=== PATIENT | male | born 1945 | race African-American/Black ===

== ENCOUNTER 2017-02-19 12:49 | Inpatient (IN) | payer OTHER ==
[~2017-02-19] VITALS: Ht 185.4 cm; Wt 77.1 kg
[~2017-02-19 12:49] MED LIST: AMLODIPINE BESY10 MG ORAL; HYDROCHLOROTHIA25 MG ORAL; LOSARTAN POTASS50 MG ORAL; LOVENOX10 M3 SUBQ; MINOXIDIL2.5 MG PO; WARFARIN SODIU7.5 MG ORAL
[2017-02-19 13:48] LABS: BASOPHILS % (AUTO) 1.2 % (0.0-2.0); EOSINOPHILS % (AUTO) 0.9 % (0.0-3.0); LYMPHOCYTES % (AUTO) 16.2 % (20.0-45.0); MEAN CORPUSCULAR HEMOGLOBIN 35.1 PG (27.0-31.0); MEAN CORPUSCULAR HGB CONC 34.4 G/DL (32.0-36.0); MEAN CORPUSCULAR VOLUME 102 FL (80-99); MEAN PLATELET VOLUME 8.9 FL (6.5-10.1); MONOCYTES % (AUTO) 7.6 % (1.0-10.0); NEUTROPHILS % (AUTO) 74.1 % (45.0-75.0); PLATELET COUNT 188 K/UL (150-450); RED BLOOD COUNT 3.91 M/UL (4.70-6.10); RED CELL DISTRIBUTION WIDTH 11.8 % (11.6-14.8); WHITE BLOOD COUNT 10.8 K/UL (4.8-10.8)
[2017-02-19 14:11] LABS: TROPONIN I < 0.30 ng/mL (<=0.30)
[2017-02-19 14:56] LABS: ALANINE AMINOTRANSFERASE 26 U/L (3-41); ALBUMIN/GLOBULIN RATIO 0.6 (1.0-2.7); ANION GAP 18 (5-15); ASPARTATE AMINO TRANSFERASE 51 U/L (5-40); CALCIUM 10.2 mg/dL (8.6-10.2); CARBON DIOXIDE 20 mEQ/L (20-30); CHLORIDE 97 mEQ/L (98-107); CREATININE 1.8 mg/dL (0.7-1.2); GLOMERULAR FILTRATION RATE 45.6 mL/min (>60); HEMOLYSIS 1; LIPASE 88 U/L (< 60); SODIUM 135 mEQ/L (135-145); TOTAL PROTEIN 7.2 g/dL (6.6-8.7)
[2017-02-19 15:06] LABS: CKMB < 1.5 ng/mL (< 6.7)
[2017-02-19 15:17] LABS: BILIRUBIN,DIRECT 2.6 mg/dL (0.1-0.3)
[2017-02-19 15:34] VITALS: BP 117/55
[2017-02-19] MEDS ORDERED: Nitroglycerin Subl 0.4mg tab (Bottle Of 25) SL PRN (16:00)
[2017-02-19] MEDS ORDERED: Mylanta II UD 30ml ORAL PRN (16:00)
[2017-02-19] MEDS ORDERED: Morphine Sulfate 2mg/ml Inj IVP PRN (16:00)
--- NOTE | 2017-02-19 16:44 | Diagnostic Imaging Report ---
Indication: Abdominal pain Technique: Spiral acquisitions obtained through the abdomen and pelvis. No oral contrast, per referring physician request. No IV contrast utilized, per referring physician request and a history renal insufficiency.. Multiplanar reconstructions were generated. Total dose length product 690 mGycm. CTDIvol(s) 13 mGy. Dose reduction achieved using automated exposure control Comparison: None Findings: The appendix contains a large appendicolith, there is upper limits of normal in caliber but there are is no evidence of periappendiceal inflammatory. There are a few colonic diverticula, but no evidence of acute diverticulitis. Small bowel loops are prominent, fluid and gas filled, but not frankly dilated. No free intraperitoneal air. There is trace free fluid within the pelvis and adjacent to the liver. Distal esophagus, stomach, duodenum are unremarkable. Lack of IV contrast limits assessment of the solid organs. There is a large mass coming off of the pancreatic tail, which measures 5 cm transverse by 5.3 cm AP by 5 cm caudad. There are prominent peripancreatic and lesser sac lymph nodes noted. Innumerable low-attenuation lesions are seen throughout the liver, which is enlarged as a result. There is also a small hyperattenuating lesion in the posterior dome. Liver demonstrates some capsular calcifications posteriorly. The gallbladder demonstrates equivocal mild wall thickening and equivocal pericholecystic fluid, but no calculi. No biliary ductal dilatation. The spleen is unremarkable. Left adrenal is diffusely hypertrophic. The kidneys demonstrate nonspecific bilateral perinephric fat stranding. The left kidney demonstrate a somewhat complex appearing 2 cm angiomyolipoma. No pelvic mass or adenopathy. The prostate is enlarged, measures 6.3 cm transverse by 4 cm AP by 4.3 cm craniocaudad. Groundglass opacities and atelectatic changes are seen at the right lung base. There is a mitral valve prosthesis. The bones demonstrate degenerative spondylosis changes. Impression: 5 x 5.3 x 5 cm pancreatic tail mass, highly suspicious for primary pancreatic malignancy. There is evidence of peripancreatic lymphadenopathy Innumerable liver lesions throughout the liver, enlarging it. Appearance highly suspicious for diffuse metastatic involvement, presumably secondary to the above. Trace ascites Equivocal mild gallbladder wall thickening and pericholecystic fluid, no definite radiopaque calculi. Probably secondary to underdistention ascites,. Consider nuclear medicine hepatobiliary scan if there is high clinical suspicion 4 acute cholecystitis Nonspecific bilateral perinephric fat stranding Complex 2 cm left renal angiomyolipoma Prostatomegaly Incidental finding right basilar pulmonary parenchymal groundglass opacities and atelectatic changes, degenerative spondylosis, mitral valve prosthesis The CT scanner at [facility] is accredited by the [employer] and the scans are performed using protocols designed to limit radiation exposure to as low as reasonably achievable to attain images of sufficient resolution adequate for diagnostic evaluation.
--- NOTE | 2017-02-19 16:48 | GI Initial Consult Note ---
Canales,Magy Ramses NKalyn 02/19/17 1648: History of Present Illness General Date patient seen: Feb 19, 2017 Time patient seen: 16:30 Reason for Hospitalization: Abdominal Pain Present Illness HPI Pt is 71 year old patient that we have seen as an outpatient last year presents to the ED with c/o abdominal pain. APCT was done and preliminary readings suggest the patient has pancreatic CA with metastasis to the liver. The patient was seen by Dr. Hdez and now being admitted for further work up. Patient had a colonoscopy in August of 2016, see report below. He presents today with anemia, abnormal LFTs, and elevated lipase levels. Endoscopy Procedure Note Indication for Procedure: screening Procedures Performed: colonoscopy Operative Findings/Diagnosis: 3 polyps SELIN HDEZ - Sep 01, 2016 07:35 Home Meds Reported Medications Warfarin Sod* (WARFARIN SOD*) 7.5 Mg Tablet, 7.5 MG ORAL DAILY, TAB 06/17/16 Hydrochlorothiazide* (HYDROCHLOROTHIAZIDE*) 25 Mg Tablet, 25 MG ORAL DAILY, TAB 06/17/16 Losartan Potassium* (LOSARTAN POTASSIUM*) 50 Mg Tablet, 50 MG ORAL DAILY, TAB 06/17/16 Amlodipine Besylate* (AMLODIPINE BESYLATE*) 10 Mg Tablet, 10 MG ORAL DAILY, TAB 06/17/16 Minoxidil* (LONITEN*) 2.5 Mg Tablet, 2.5 MG PO DAILY, TAB 06/17/16 Discontinued Reported Medications Enoxaparin* (LOVENOX*) 100 Mg/Ml Inj, 90 MG SUBQ BID, #30 EA 0 Refills 09/01/16 Med list reviewed/reconciled: Yes Allergies: Coded Allergies: No Known Allergies (Unverified , 06/17/16) Patient History History Provided By: Patient, Medical Record PMH Narrative HTN A fib Cardiac disease PSHx Open heart surgery x 15-16 years ago. Pt currently taking Warfarin 7.5mg Social History: Reports: alcohol use - 40 + years, smoking - 40+ years/1 pack per day Review of Systems All Other Systems: negative except mentioned in HPI Physical Exam Vital Signs Date Time Temp Pulse Resp B/P Pulse Ox O2 Delivery O2 Flow Rate FiO2 02/19/17 12:54 98.1 50 17 104/61 100 Room Air Labs Laboratory Tests Test 02/19/17 13:26 02/19/17 14:30 White Blood Count 10.8 K/UL (4.8-10.8) Red Blood Count 3.91 M/UL (4.70-6.10) L Hemoglobin 13.7 G/DL (14.2-18.0) L Hematocrit 39.9 % (42.0-52.0) L Mean Corpuscular Volume 102 FL (80-99) H Mean Corpuscular Hemoglobin 35.1 PG (27.0-31.0) H Mean Corpuscular Hemoglobin Concent 34.4 G/DL (32.0-36.0) Red Cell Distribution Width 11.8 % (11.6-14.8) Platelet Count 188 K/UL (150-450) Mean Platelet Volume 8.9 FL (6.5-10.1) Neutrophils (%) (Auto) 74.1 % (45.0-75.0) Lymphocytes (%) (Auto) 16.2 % (20.0-45.0) L Monocytes (%) (Auto) 7.6 % (1.0-10.0) Eosinophils (%) (Auto) 0.9 % (0.0-3.0) Basophils (%) (Auto) 1.2 % (0.0-2.0) Troponin I < 0.30 ng/mL (<=0.30) Sodium Level 135 mEQ/L (135-145) Potassium Level 4.0 mEQ/L (3.4-4.9) Chloride Level 97 mEQ/L (98-107) L Carbon Dioxide Level 20 mEQ/L (20-30) Anion Gap 18 (5-15) H Blood Urea Nitrogen 46 mg/dL (7-23) H Creatinine 1.8 mg/dL (0.7-1.2) H Estimat Glomerular Filtration Rate 45.6 mL/min (>60) Glucose Level 140 mg/dL (74-106) H Calcium Level 10.2 mg/dL (8.6-10.2) Total Bilirubin 3.5 mg/dL (0.0-1.2) H Direct Bilirubin 2.6 mg/dL (0.1-0.3) H Aspartate Amino Transf (AST/SGOT) 51 U/L (5-40) H Alanine Aminotransferase (ALT/SGPT) 26 U/L (3-41) Alkaline Phosphatase 339 U/L (40-129) H Total Creatine Kinase 22 U/L (38-174) L Creatine Kinase MB < 1.5 ng/mL (< 6.7) Creatine Kinase MB Relative Index 6.8 Total Protein 7.2 g/dL (6.6-8.7) Albumin 2.8 g/dL (3.5-5.2) L Globulin 4.4 g/dL Albumin/Globulin Ratio 0.6 (1.0-2.7) L Lipase 88 U/L (< 60) H Other Organ Systems Sp02 EP Interpretation: reviewed General Appearance: well appearing, no apparent distress, alert Head: normocephalic EENT: normal ENT inspection Neck: full range of motion, supple Respiratory: lungs clear - shallow bilateral bases, normal breath sounds, no rhonchi Cardiovascular: regularly irregular, bradycardia - ~ 40-50 Gastrointestinal: normal inspection, non tender, soft Rectal: deferred Musculoskeletal: back normal Neurologic: normal inspection, alert, oriented x3, responsive Psychiatric: normal inspection, judgement/insight normal, memory normal Skin: normal inspection, normal color, no rash Lymphatic: normal inspection, no adenopathy Current Medications Current Medications Medications (Trade) Dose Ordered Sig/Bubba Route PRN Reason Start Time Stop Time Status Last Admin Dose Admin Acetaminophen (Tylenol) 650 mg Q4H PRN ORAL T>100.5 02/19/17 16:00 03/21/17 15:59 Al Hydroxide/Mg Hydroxide (Mylanta II) 30 ml Q6H PRN ORAL dyspepsia 02/19/17 16:00 03/21/17 15:59 Amlodipine Besylate (Norvasc) 10 mg DAILY ORAL 02/20/17 09:00 03/22/17 08:59 Dextrose (Dextrose 50%) STAT PRN IV Hypoglycemia 02/19/17 15:45 03/21/17 15:44 Dextrose/Sodium Chloride (D5 0.45% NS) 1,000 ml @ 75 mls/hr [id number] IV 02/19/17 17:00 03/21/17 16:59 Diphenhydramine HCl (Benadryl) 25 mg Q6H PRN ORAL Itching/Pruritis 02/19/17 16:00 03/21/17 15:59 Heparin Sodium (Porcine) (Heparin 5000 units/ml) 5,000 units EVERY 12 HOURS SUBQ 02/19/17 21:00 03/21/17 20:59 Minoxidil 2.5 mg 2.5 mg DAILY ORAL 02/20/17 09:00 03/22/17 08:59 Morphine Sulfate (Morphine Sulfate) 2 mg Q4H PRN IVP Severe Pain (Pain Scale 7-10) 02/19/17 16:00 02/26/17 15:59 Nitroglycerin (Ntg) 0.4 mg Q5M X 3 DOSES PRN SL Prn Chest Pain 02/19/17 16:00 03/21/17 15:59 Ondansetron HCl (Zofran) 4 mg Q6H PRN IVP Nausea & Vomiting 02/19/17 16:00 03/21/17 15:59 Polyethylene Glycol (Miralax) 17 gm HSPRN PRN ORAL Constipation 02/19/17 21:00 03/21/17 20:59 Temazepam (Restoril) 15 mg HSPRN PRN ORAL Insomnia 02/19/17 21:00 02/26/17 20:59 GI: Plan Problems: (1) Encounter for diagnostic endoscopy (2) Pancreatic cancer (3) Hypoalbuminemia (4) Anemia (5) Abnormal LFTs (liver function tests) (6) Abdominal pain Plan Plan for EUS next Thursday given the patient is on Coumadin which must be stop min 48-72 hours prior to the procedure. admit patient, maintain NPO + IVFs ordered CEA, [id number] recommend Oncology consult fu labs Discussed with Dr. Hdez. Thank you for referring this patient, we will follow. SELIN HDEZ 02/20/17 9640: History of Present Illness General Reason for Hospitalization: Abdominal Pain Present Illness Home Meds Reported Medications Warfarin Sod* (WARFARIN SOD*) 7.5 Mg Tablet, 7.5 MG ORAL DAILY, TAB 06/17/16 Hydrochlorothiazide* (HYDROCHLOROTHIAZIDE*) 25 Mg Tablet, 25 MG ORAL DAILY, TAB 06/17/16 Losartan Potassium* (LOSARTAN POTASSIUM*) 50 Mg Tablet, 50 MG ORAL DAILY, TAB 06/17/16 Amlodipine Besylate* (AMLODIPINE BESYLATE*) 10 Mg Tablet, 10 MG ORAL DAILY, TAB 06/17/16 Minoxidil* (LONITEN*) 2.5 Mg Tablet, 2.5 MG PO DAILY, TAB 06/17/16 Discontinued Reported Medications Enoxaparin* (LOVENOX*) 100 Mg/Ml Inj, 90 MG SUBQ BID, #30 EA 0 Refills 09/01/16 Allergies: Coded Allergies: No Known Allergies (Unverified , 06/17/16) GI: Plan Plan The patient was seen and examined at bedside and all new and available data was reviewed in the patients chart. I agree with the above findings, impression and plan. (Patient seen earlier today. Signature stamp does not reflect patient encounter time.). -Magy Crowder MD, N.P. Feb 19, 2017 16:48 SELIN HDEZ Feb 20, 2017 07:40
[2017-02-19 16:59] VITALS: BP 129/70
--- NOTE | 2017-02-19 17:03 | Emergency Room Report ---
History of Present Illness General Chief Complaint: Abdominal Pain Source: Patient, Medical Record Present Illness HPI 71-year-old male presents to ED for evaluation. Patient referred here by PMD. Patient had documentation stating that patient has been losing weight is very weak with abdominal pain for several months. Pain is sharp. Epigastric. . Nonradiating. No other aggravating or relieving factors. Denies chest pain or shortness of breath. Patient was admitted here in August and had colonoscopy at that time by Dr. Hdez. Denies any other associated symptom Allergies: Coded Allergies: No Known Allergies (Unverified , 06/17/16) Patient History Past Medical History: HTN Pertinent Family History: none Social History: Denies: alcohol use, drug use, smoking Immunizations: UTD Reviewed Nursing Documentation: PMH: Agreed, PSxH: Agreed Nursing Documentation-PMH Past Medical History: No History, Except For Hx Cardiac Problems: Yes Hx Hypertension: Yes Hx Cancer: No Hx Gastrointestinal Problems: No Hx Neurological Problems: No Review of Systems All Other Systems: negative except mentioned in HPI Physical Exam Vital Signs Date Time Temp Pulse Resp B/P Pulse Ox O2 Delivery O2 Flow Rate FiO2 02/19/17 12:54 98.1 50 17 104/61 100 Room Air Sp02 EP Interpretation: reviewed, normal General Appearance: no apparent distress, alert, GCS 15, non-toxic Head: normocephalic Eyes: bilateral eye PERRL, bilateral eye normal inspection ENT: normal ENT inspection Neck: normal inspection Respiratory: chest non-tender, lungs clear, normal breath sounds, speaking full sentences Cardiovascular #1: regular rate, rhythm, no edema Gastrointestinal: normal bowel sounds, soft, non-distended, no guarding, no rebound, tenderness - epigastric Rectal: deferred Genitourinary: no CVA tenderness Musculoskeletal: normal inspection Neurologic: alert, oriented x3, responsive, motor strength/tone normal, sensory intact, speech normal Psychiatric: normal inspection Skin: normal inspection Lymphatic: normal inspection Medical Decision Making Diagnostic Impression: Primary Impression: Pancreatic cancer Qualified Codes: C25.9 - Malignant neoplasm of pancreas, unspecified Additional Impressions: Abnormal LFTs (liver function tests) ARF (acute renal failure) Qualified Codes: N17.9 - Acute kidney failure, unspecified Bradycardia ER Course Hospital Course T11-year-old male presents ED with epigastric pain and weight loss Differential diagnoses include: pancreatitis, gastritis, ulcer, SBO Clinical course Patient placed on stretcher. campus monitor. After initial history and physical I ordered labs, IV fluids, UA, pain medication and CT scan Labs - no leukocytosis, Hb/Hct stable. BUN/Cr elevated. CT abdomen and pelvis - multiple liver lesions, masses pancreatic tail Dr. Hdez agreed to consult. patient informed of findings. Case discussed with Dr. Aquino and he agreed to accept the patient to his service for further care and support Patient is bradycardic in ER. Heart rate ranges in the 40s to 50s. Patient states he feels okay. BP is okay I feel this is a highly complex case requiring extensive working including EKG/ Rhythm strip, Xray/CT/US, Blood/urine lab work, repeat exams while in ED, and administration of strong opiates/narcotics for pain control, admission to hospital or close patient follow up. Diagnosis - pancreatic cancer, abnormal LFTs, ARF, bradycardia Patient admitted to telemetry in serious condition Labs Test 02/19/17 13:26 02/19/17 14:30 White Blood Count 10.8 K/UL (4.8-10.8) Red Blood Count 3.91 M/UL (4.70-6.10) Hemoglobin 13.7 G/DL (14.2-18.0) Hematocrit 39.9 % (42.0-52.0) Mean Corpuscular Volume 102 FL (80-99) Mean Corpuscular Hemoglobin 35.1 PG (27.0-31.0) Mean Corpuscular Hemoglobin Concent 34.4 G/DL (32.0-36.0) Red Cell Distribution Width 11.8 % (11.6-14.8) Platelet Count 188 K/UL (150-450) Mean Platelet Volume 8.9 FL (6.5-10.1) Neutrophils (%) (Auto) 74.1 % (45.0-75.0) Lymphocytes (%) (Auto) 16.2 % (20.0-45.0) Monocytes (%) (Auto) 7.6 % (1.0-10.0) Eosinophils (%) (Auto) 0.9 % (0.0-3.0) Basophils (%) (Auto) 1.2 % (0.0-2.0) Troponin I < 0.30 ng/mL (<=0.30) Sodium Level 135 mEQ/L (135-145) Potassium Level 4.0 mEQ/L (3.4-4.9) Chloride Level 97 mEQ/L (98-107) Carbon Dioxide Level 20 mEQ/L (20-30) Anion Gap 18 (5-15) Blood Urea Nitrogen 46 mg/dL (7-23) Creatinine 1.8 mg/dL (0.7-1.2) Estimat Glomerular Filtration Rate 45.6 mL/min (>60) Glucose Level 140 mg/dL (74-106) Calcium Level 10.2 mg/dL (8.6-10.2) Total Bilirubin 3.5 mg/dL (0.0-1.2) Direct Bilirubin 2.6 mg/dL (0.1-0.3) Aspartate Amino Transf (AST/SGOT) 51 U/L (5-40) Alanine Aminotransferase (ALT/SGPT) 26 U/L (3-41) Alkaline Phosphatase 339 U/L (40-129) Total Creatine Kinase 22 U/L (38-174) Creatine Kinase MB < 1.5 ng/mL (< 6.7) Creatine Kinase MB Relative Index 6.8 Total Protein 7.2 g/dL (6.6-8.7) Albumin 2.8 g/dL (3.5-5.2) Globulin 4.4 g/dL Albumin/Globulin Ratio 0.6 (1.0-2.7) Lipase 88 U/L (< 60) CT/MRI/US Diagnostic Results CT/MRI/US Diagnostic Results : Imaging Test Ordered: CT A/P Impression mass in pancreatic tail. multiple liver lesions. with enlarged liver Last Vital Signs Date Time Temp Pulse Resp B/P Pulse Ox O2 Delivery O2 Flow Rate FiO2 02/19/17 16:22 97.9 50 16 117/55 99 Room Air Status: improved Disposition: ADMITTED INPATIENT Condition: Serious Referrals: NON PHYSICIAN (PCP) TONIA WAGNER M.D. Feb 19, 2017 17:03
[2017-02-19] MEDS: D5 1/2NS 1,000 ML IV SCH (17:30)
--- NOTE | 2017-02-19 18:49 | Cardiology Progress Note ---
Assessment/Plan Assessment/Plan mv [facility] prosthesis with thrombosis on prior occasion off anticoagulation abd pain hepatomegally hyperbilirubinemia weight loss aflutter s/p ablation now intermittent recurrence bradycardia need [facility] was seen by dr cedeno previously bili was neg in 07/2016 in my office need anticoagualtion need protime adn if inr less than 2 needs iv heparin avoai any neg chronotropic agent no bb no cardizem no clonidine [id number] Objective Last 24 Hour Vital Signs Date Time Temp Pulse Resp B/P Pulse Ox O2 Delivery O2 Flow Rate FiO2 02/19/17 16:59 97.3 47 20 129/70 94 Room Air 02/19/17 16:22 97.9 50 16 117/55 99 Room Air 02/19/17 15:34 97.9 50 16 117/55 99 Room Air 02/19/17 12:54 98.1 50 17 104/61 100 Room Air Laboratory Tests Test 02/19/17 13:26 02/19/17 14:30 White Blood Count 10.8 K/UL (4.8-10.8) Red Blood Count 3.91 M/UL (4.70-6.10) L Hemoglobin 13.7 G/DL (14.2-18.0) L Hematocrit 39.9 % (42.0-52.0) L Mean Corpuscular Volume 102 FL (80-99) H Mean Corpuscular Hemoglobin 35.1 PG (27.0-31.0) H Mean Corpuscular Hemoglobin Concent 34.4 G/DL (32.0-36.0) Red Cell Distribution Width 11.8 % (11.6-14.8) Platelet Count 188 K/UL (150-450) Mean Platelet Volume 8.9 FL (6.5-10.1) Neutrophils (%) (Auto) 74.1 % (45.0-75.0) Lymphocytes (%) (Auto) 16.2 % (20.0-45.0) L Monocytes (%) (Auto) 7.6 % (1.0-10.0) Eosinophils (%) (Auto) 0.9 % (0.0-3.0) Basophils (%) (Auto) 1.2 % (0.0-2.0) Troponin I < 0.30 ng/mL (<=0.30) Sodium Level 135 mEQ/L (135-145) Potassium Level 4.0 mEQ/L (3.4-4.9) Chloride Level 97 mEQ/L (98-107) L Carbon Dioxide Level 20 mEQ/L (20-30) Anion Gap 18 (5-15) H Blood Urea Nitrogen 46 mg/dL (7-23) H Creatinine 1.8 mg/dL (0.7-1.2) H Estimat Glomerular Filtration Rate 45.6 mL/min (>60) Glucose Level 140 mg/dL (74-106) H Calcium Level 10.2 mg/dL (8.6-10.2) Total Bilirubin 3.5 mg/dL (0.0-1.2) H Direct Bilirubin 2.6 mg/dL (0.1-0.3) H Aspartate Amino Transf (AST/SGOT) 51 U/L (5-40) H Alanine Aminotransferase (ALT/SGPT) 26 U/L (3-41) Alkaline Phosphatase 339 U/L (40-129) H Total Creatine Kinase 22 U/L (38-174) L Creatine Kinase MB < 1.5 ng/mL (< 6.7) Creatine Kinase MB Relative Index 6.8 Total Protein 7.2 g/dL (6.6-8.7) Albumin 2.8 g/dL (3.5-5.2) L Globulin 4.4 g/dL Albumin/Globulin Ratio 0.6 (1.0-2.7) L Lipase 88 U/L (< 60) H KENIA CARRILLO Feb 19, 2017 18:49
[2017-02-19 20:00] VITALS: BP 130/74
[2017-02-19] MEDS: Heparin 5000 units/ml inj SUBQ SCH (21:00)
[2017-02-19] MEDS ORDERED: Miralax 17gm pkt ORAL PRN (21:00)
--- NOTE | 2017-02-19 23:28 | Consultation ---
DATE OF CONSULTATION: 02/19/2017 CARDIOLOGY CONSULTATION CONSULTING PHYSICIAN: Andrew Macdonald M.D. REFERRING PHYSICIAN: Sho Aquino M.D. REASON FOR REFERRAL: Bradycardia. HISTORY OF PRESENT ILLNESS: This is an elderly gentleman, who is known to me from prior evaluation and hospitalization. The patient has a history of multiple medical problems as delineated below. He comes into the hospital because of abdominal pain. He actually went to Dr. Brush, his primary care physician because of the abdominal pain. He was noted to have some abnormalities on examination of his abdomen and was told to come to the hospital to be admitted. The patient has been previously seen by Dr. Hdez during the month of August where he underwent a colonoscopy and he had to be taken off of his anticoagulation in anticipation of his upcoming surgery. At that time, he tolerated that procedure well. He has had a significant amount of weight loss. He really does not have any chest pain. He does have some fatigue when he does get up and walk around and possibly some shortness of breath or dizziness, as that is not completely clear. He uses two pillows and he does not have an episode of syncope recently, although he has had on prior occasions number of years ago. His main issue right now is the fact that he has been having some abdominal pain and fullness. PAST MEDICAL HISTORY: Positive history of flutter and mitral valve replacement in 1998 with ASD repair at that time and in May of 2009, he had elective ablation of a atrial flutter. Postoperatively, his echocardiogram that was done showed two masses consistent with thrombi and [facility] mitral valve was anticoagulated and again eventually had successful re-ablation of the cavotricuspid isthmus for atrial flutter in 2017. He has had prosthetic mitral valve for the atrial flutter and nicotine dependence. MEDICATIONS: He has previously been according to my notes in the office, he had been taking amlodipine 10 mg daily. He was on hydrochlorothiazide 25 mg daily, losartan 50 mg daily, minoxidil 2.5 mg two times daily, and warfarin variable doses, previously at 7.5 mg. ALLERGIES: He is not allergic to any medications. SOCIAL HISTORY: He smokes [id number]-half packs per day. Alcohol, three shots per day. Drugs, none. 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 FAMILY HISTORY: His mother had irregular heart rhythm. His father of asbestosis. REVIEW OF SYSTEMS: Gastrointestinal: He has had abdominal pain. No bloody or black stools. He is constipated. He takes MiraLAX. Genitourinary: He does not have discomfort except from nocturia. Pulmonary: He has some shortness of breath, some coughing, and some sputum production that he describes as white. Constitutional: Positive for significant weight loss and minimal night sweats. Neurologic: Negative. Cardiac: As mentioned in the history of present illness, he had been in my office, 193 pounds, that is July 2016, but he indicated that his weight has decreased down to 170 today. His last echocardiogram in the office was performed in July 2016 showed normal left ventricular systolic function, ejection fraction 60% to 65%, mildly enlarged right atrium, prosthetic mitral valve with good opening, and aortic valve structures are thickened, otherwise normal. No significant valvular regurgitation with peak gradient of 11.5 and a mean gradient of 4.8 mitral valve. The mitral inflow was nondiagnostic. The tricuspid regurgitation of moderate degree as the pressure is 28 to 33. PHYSICAL EXAMINATION: GENERAL: Shows an elderly gentleman that looks like he has lost some weight compared to previous levels. His carotid upstroke is intact. LUNGS: Clear to auscultation and percussion, although some decreased breath sounds noted. CARDIAC: S1 is mechanical. S2 is normal. Irregularly irregular. Bradycardic. No heaves or thrills noted. No rubs are noted. ABDOMEN: Soft. There is what appears to be hepatomegaly. EXTREMITIES: Shows no evidence of clubbing, cyanosis, nor has edema. NEUROLOGIC: He is awake, alert, responsive, and in no apparent respiratory distress. LABORATORY VALUES: His EKG shows atrial fibrillation with a heart rate of 46, his heart rate was 65 when I saw him in the office, although at that time, he had been in sinus. It appears that he was in sinus earlier today in the emergency room and he probably does flip back and forth between sinus and atrial fibrillation on a regular basis. His sinus rate, however, was in the 70s. He does have some T-wave inversions in V1 and V2 that were present on prior occasions as well. He does have some ST-segment changes in the 2, 3, and aVF, which were also present on his prior EKG, although not to this degree. His other laboratories include a white count of 10.8, hemoglobin 13.7, and platelet count of 188. His sodium is 135, potassium 4.0, chloride 97, bicarbonate of 20, BUN of 46, creatinine 1.8, and a glucose of 140. His bilirubin is 3.5. His AST and ALT are 51 and 2.6. Alkaline phosphatase increased at 339. His CK of 22. Albumin is 2.8. Lipase is 88. His liver function tests when he was last in the office back on 08/21/2016 showed a bilirubin that was normal at that time. His INR was not performed today. ASSESSMENT AND PLAN: 1. Mitral valve prosthesis. 2. History of thrombosis on prior occasions, off anticoagulation. 3. Abdominal pain. 4. Hepatomegaly. 5. Hyperbilirubinemia. 6. Weight loss. 7. Atrial flutter status post ablation, now intermittent recurrence. 8. Bradycardia. PLAN: Dr. Aquino, this patient was seen in cardiac consultation. The patient's gastrointestinal workup, was previously seen by Dr. Hdez and his bilirubin was negative at the time of his office visit in July 2016 in my office. He needs anticoagulation. He needs protime and if INR is less than 2, he intravenous heparin. Avoid administration of any negative chronotropic agents including beta blockers, Cardizem, or clonidine. I will follow the patient along with you. Andrew Macdonald M.D. DR: VÍCTOR JOB#: [id number] CC:
[2017-02-20 00:17] VITALS: BP 102/40
[2017-02-20] MEDS: D5 1/2NS 1,000 ML IV SCH ×2 (06:20→21:20)
[2017-02-20 08:10] VITALS: BP 118/53
--- NOTE | 2017-02-20 08:32 | Diagnostic Imaging Report ---
Indication: CP Technique: One view of the chest Comparison: none Findings: Lungs are hyperinflated, with suggestion of upper lobe bullous changes. Linear scarring is seen at both lung bases. Lungs and pleural spaces are otherwise clear. Heart size is normal. There is evidence of prior cardiac valve repair Impression: Evidence of COPD. No definite acute process Other findings as noted
[2017-02-20] MEDS: Minoxidil 2.5mg tab ORAL SCH (09:51)
[2017-02-20] MEDS: Heparin 5000 units/ml inj SUBQ SCH (09:54)
[2017-02-20 11:26] VITALS: BP 128/57
[2017-02-20 11:30] LABS: EOSINOPHILS % (AUTO) 1.4 % (0.0-3.0); LYMPHOCYTES % (AUTO) 14.5 % (20.0-45.0); MEAN CORPUSCULAR HEMOGLOBIN 35.5 PG (27.0-31.0); MEAN CORPUSCULAR HGB CONC 34.5 G/DL (32.0-36.0); MEAN CORPUSCULAR VOLUME 103 FL (80-99); MEAN PLATELET VOLUME 8.9 FL (6.5-10.1); MONOCYTES % (AUTO) 8.6 % (1.0-10.0); NEUTROPHILS % (AUTO) 73.4 % (45.0-75.0); PLATELET COUNT 187 K/UL (150-450); RED BLOOD COUNT 3.59 M/UL (4.70-6.10); WHITE BLOOD COUNT 9.9 K/UL (4.8-10.8)
[2017-02-20 11:48] LABS: ALBUMIN/GLOBULIN RATIO 0.5 (1.0-2.7); CALCIUM 10.3 mg/dL (8.6-10.2); CREATININE 1.5 mg/dL (0.7-1.2); GLOMERULAR FILTRATION RATE 56.2 mL/min (>60); POTASSIUM 4.2 mEQ/L (3.4-4.9); TOTAL PROTEIN 7.1 g/dL (6.6-8.7)
--- NOTE | 2017-02-20 11:56 | GI Progress Note ---
Assessment/Plan Problems: (1) Pancreatic cancer ICD Codes: C25.9 - Malignant neoplasm of pancreas, unspecified SNOMED: 002559180 Qualifiers: Qualified Codes: C25.9 - Malignant neoplasm of pancreas, unspecified (2) Abnormal LFTs (liver function tests) ICD Codes: R79.89 - Other specified abnormal findings of blood chemistry SNOMED: 878760150 (3) Encounter for diagnostic endoscopy ICD Codes: Z01.818 - Encounter for other preprocedural examination SNOMED: 674131200, 208293100 (4) Abdominal pain ICD Codes: R10.9 - Unspecified abdominal pain SNOMED: 34116812 (5) Hypoalbuminemia ICD Codes: E88.09 - Other disorders of plasma-protein metabolism, not elsewhere classified SNOMED: 844918845 (6) Anemia ICD Codes: D64.9 - Anemia, unspecified SNOMED: 425097245 Status: stable Status Narrative Discussed with Dr. Hdez. Assessment/Plan EUS scheduled for next thursday. - NPO night prior procedure. - dc coumadin fu CEA, CA19-9 ok adv to low fat diet after U/S fu abd U/S recommend Oncology consult fu labs Subjective Gastrointestinal/Abdominal: Reports: abdominal pain Objective Last 24 Hour Vital Signs Date Time Temp Pulse Resp B/P Pulse Ox O2 Delivery O2 Flow Rate FiO2 02/20/17 11:26 97.5 44 20 128/57 96 Room Air 02/20/17 09:51 118/53 02/20/17 08:10 97.9 45 20 118/53 95 Room Air 02/20/17 04:00 58 02/20/17 00:17 99.0 50 20 102/40 95 Room Air 02/20/17 00:00 57 02/19/17 20:00 97.0 50 20 130/74 95 Room Air 02/19/17 20:00 51 02/19/17 16:59 97.3 47 20 129/70 94 Room Air 02/19/17 16:22 97.9 50 16 117/55 99 Room Air 02/19/17 15:34 97.9 50 16 117/55 99 Room Air 02/19/17 12:54 98.1 50 17 104/61 100 Room Air Intake and Output 02/19/17 02/20/17 19:00 07:00 Intake Total 575 ml 195 ml Balance 575 ml 195 ml Intake Oral 120 ml IV Total 575 ml 75 ml # Voids 1 Laboratory Tests Test 02/19/17 13:26 02/19/17 14:30 02/19/17 20:05 02/20/17 10:50 White Blood Count 10.8 K/UL (4.8-10.8) 9.9 K/UL (4.8-10.8) Red Blood Count 3.91 M/UL (4.70-6.10) L 3.59 M/UL (4.70-6.10) L Hemoglobin 13.7 G/DL (14.2-18.0) L 12.7 G/DL (14.2-18.0) L Hematocrit 39.9 % (42.0-52.0) L 36.9 % (42.0-52.0) L Mean Corpuscular Volume 102 FL (80-99) H 103 FL (80-99) H Mean Corpuscular Hemoglobin 35.1 PG (27.0-31.0) H 35.5 PG (27.0-31.0) H Mean Corpuscular Hemoglobin Concent 34.4 G/DL (32.0-36.0) 34.5 G/DL (32.0-36.0) Red Cell Distribution Width 11.8 % (11.6-14.8) 12.0 % (11.6-14.8) Platelet Count 188 K/UL (150-450) 187 K/UL (150-450) Mean Platelet Volume 8.9 FL (6.5-10.1) 8.9 FL (6.5-10.1) Neutrophils (%) (Auto) 74.1 % (45.0-75.0) 73.4 % (45.0-75.0) Lymphocytes (%) (Auto) 16.2 % (20.0-45.0) L 14.5 % (20.0-45.0) L Monocytes (%) (Auto) 7.6 % (1.0-10.0) 8.6 % (1.0-10.0) Eosinophils (%) (Auto) 0.9 % (0.0-3.0) 1.4 % (0.0-3.0) Basophils (%) (Auto) 1.2 % (0.0-2.0) 2.0 % (0.0-2.0) Troponin I < 0.30 ng/mL (<=0.30) Sodium Level 135 mEQ/L (135-145) 135 mEQ/L (135-145) Potassium Level 4.0 mEQ/L (3.4-4.9) 4.2 mEQ/L (3.4-4.9) Chloride Level 97 mEQ/L (98-107) L 98 mEQ/L (98-107) Carbon Dioxide Level 20 mEQ/L (20-30) 20 mEQ/L (20-30) Anion Gap 18 (5-15) H 17 (5-15) H Blood Urea Nitrogen 46 mg/dL (7-23) H 39 mg/dL (7-23) H Creatinine 1.8 mg/dL (0.7-1.2) H 1.5 mg/dL (0.7-1.2) H Estimat Glomerular Filtration Rate 45.6 mL/min (>60) 56.2 mL/min (>60) Glucose Level 140 mg/dL (74-106) H 159 mg/dL (74-106) H Calcium Level 10.2 mg/dL (8.6-10.2) 10.3 mg/dL (8.6-10.2) H Total Bilirubin 3.5 mg/dL (0.0-1.2) H 3.6 mg/dL (0.0-1.2) H Direct Bilirubin 2.6 mg/dL (0.1-0.3) H Pending Aspartate Amino Transf (AST/SGOT) 51 U/L (5-40) H 43 U/L (5-40) H Alanine Aminotransferase (ALT/SGPT) 26 U/L (3-41) 23 U/L (3-41) Alkaline Phosphatase 339 U/L (40-129) H 294 U/L (40-129) H Total Creatine Kinase 22 U/L (38-174) L Creatine Kinase MB < 1.5 ng/mL (< 6.7) Creatine Kinase MB Relative Index 6.8 Total Protein 7.2 g/dL (6.6-8.7) 7.1 g/dL (6.6-8.7) Albumin 2.8 g/dL (3.5-5.2) L 2.6 g/dL (3.5-5.2) L Globulin 4.4 g/dL 4.5 g/dL Albumin/Globulin Ratio 0.6 (1.0-2.7) L 0.5 (1.0-2.7) L Lipase 88 U/L (< 60) H 112 U/L (< 60) H Prothrombin Time 87.0 SEC (9.30-11.50) H Pending Prothromb Time International Ratio 8.0 (0.9-1.1) *H Pending Activated Partial Thromboplast Time 55 SEC (23-33) H Pending Amylase Level 57 U/L (10-110) Carcinoembryonic Antigen Pending CA 19-9 Antigen Pending Height (Feet): 6 Height (Inches): 1.00 Weight (Pounds): 170 General Appearance: no apparent distress, alert Cardiovascular: normal rate Respiratory/Chest: normal breath sounds, no respiratory distress Abdominal Exam: normal bowel sounds, non tender, soft Extremities: normal range of motion Objective Service Date: 02/19/17 Procedure: CT Abdomen Pelvis WO Contrast Indication: Abdominal pain Impression: 5 x 5.3 x 5 cm pancreatic tail mass, highly suspicious for primary pancreatic malignancy. There is evidence of peripancreatic lymphadenopathy Innumerable liver lesions throughout the liver, enlarging it. Appearance highly suspicious for diffuse metastatic involvement, presumably secondary to the above. Trace ascites Equivocal mild gallbladder wall thickening and pericholecystic fluid, no definite radiopaque calculi. Probably secondary to underdistention ascites,. Consider nuclear medicine hepatobiliary scan if there is high clinical suspicion 4 acute cholecystitis Nonspecific bilateral perinephric fat stranding Complex 2 cm left renal angiomyolipoma Prostatomegaly Magy Canales N.P. Feb 20, 2017 11:56
[2017-02-20 12:10] LABS: BILIRUBIN,DIRECT 2.5 mg/dL (0.1-0.3)
--- NOTE | 2017-02-20 14:27 | History and Physical ---
History of Present Illness General Date patient seen: Feb 20, 2017 Reason for Hospitalization: Abdominal Pain Present Illness HPI 71-year-old male presents to ED for evaluation of weight loss, abdominal pain for several months. Pain is sharp. Epigastric. 06/04. Nonradiating. No other aggravating or relieving factors. A ct scan in ER showed that he has pancreatic cancer with metastasis to liver. Allergies: Coded Allergies: No Known Allergies (Unverified , 06/17/16) Medication History Scheduled Amlodipine Besylate* (Amlodipine Besylate*), 10 MG ORAL DAILY, (Reported) Hydrochlorothiazide* (Hydrochlorothiazide*), 25 MG ORAL DAILY, (Reported) Losartan Potassium* (Losartan Potassium*), 50 MG ORAL DAILY, (Reported) Minoxidil* (Loniten*), 2.5 MG PO DAILY, (Reported) Warfarin Sod* (Warfarin Sod*), 7.5 MG ORAL DAILY, (Reported) Discontinued Medications Enoxaparin* (Lovenox*), 90 MG SUBQ BID, (Reported) Discontinued Reason: Therapy completed Patient History Healthcare decision maker pt alert and oriented Resuscitation status Full Code Advanced Directive on File Past Medical/Surgical History Past Medical/Surgical History: (1) Atrial fibrillation Review of Systems Constitutional: Reports: malaise, weakness All Other Systems: negative except mentioned in HPI Physical Exam General Appearance: cachetic Lines, tubes and drains: peripheral HEENT: normocephalic, atraumatic Neck: non-tender, normal alignment Respiratory/Chest: chest wall non-tender, lungs clear Cardiovascular/Chest: normal peripheral pulses, normal rate Abdomen: normal bowel sounds Genitourinary/Rectal: normal genital exam Last 24 Hour Vital Signs Date Time Temp Pulse Resp B/P Pulse Ox O2 Delivery O2 Flow Rate FiO2 02/20/17 11:26 97.5 44 20 128/57 96 Room Air 02/20/17 09:51 118/53 02/20/17 08:10 97.9 45 20 118/53 95 Room Air 02/20/17 04:00 58 02/20/17 00:17 99.0 50 20 102/40 95 Room Air 02/20/17 00:00 57 02/19/17 20:00 97.0 50 20 130/74 95 Room Air 02/19/17 20:00 51 02/19/17 16:59 97.3 47 20 129/70 94 Room Air 02/19/17 16:22 97.9 50 16 117/55 99 Room Air 02/19/17 15:34 97.9 50 16 117/55 99 Room Air Intake and Output 02/19/17 02/20/17 19:00 07:00 Intake Total 575 ml 195 ml Balance 575 ml 195 ml Intake Oral 120 ml IV Total 575 ml 75 ml # Voids 1 Laboratory Tests Test 02/19/17 14:30 02/19/17 20:05 02/20/17 10:50 Sodium Level 135 mEQ/L (135-145) 135 mEQ/L (135-145) Potassium Level 4.0 mEQ/L (3.4-4.9) 4.2 mEQ/L (3.4-4.9) Chloride Level 97 mEQ/L (98-107) L 98 mEQ/L (98-107) Carbon Dioxide Level 20 mEQ/L (20-30) 20 mEQ/L (20-30) Anion Gap 18 (5-15) H 17 (5-15) H Blood Urea Nitrogen 46 mg/dL (7-23) H 39 mg/dL (7-23) H Creatinine 1.8 mg/dL (0.7-1.2) H 1.5 mg/dL (0.7-1.2) H Estimat Glomerular Filtration Rate 45.6 mL/min (>60) 56.2 mL/min (>60) Glucose Level 140 mg/dL (74-106) H 159 mg/dL (74-106) H Calcium Level 10.2 mg/dL (8.6-10.2) 10.3 mg/dL (8.6-10.2) H Total Bilirubin 3.5 mg/dL (0.0-1.2) H 3.6 mg/dL (0.0-1.2) H Direct Bilirubin 2.6 mg/dL (0.1-0.3) H 2.5 mg/dL (0.1-0.3) H Aspartate Amino Transf (AST/SGOT) 51 U/L (5-40) H 43 U/L (5-40) H Alanine Aminotransferase (ALT/SGPT) 26 U/L (3-41) 23 U/L (3-41) Alkaline Phosphatase 339 U/L (40-129) H 294 U/L (40-129) H Total Creatine Kinase 22 U/L (38-174) L Creatine Kinase MB < 1.5 ng/mL (< 6.7) Creatine Kinase MB Relative Index 6.8 Total Protein 7.2 g/dL (6.6-8.7) 7.1 g/dL (6.6-8.7) Albumin 2.8 g/dL (3.5-5.2) L 2.6 g/dL (3.5-5.2) L Globulin 4.4 g/dL 4.5 g/dL Albumin/Globulin Ratio 0.6 (1.0-2.7) L 0.5 (1.0-2.7) L Lipase 88 U/L (< 60) H 112 U/L (< 60) H Prothrombin Time 87.0 SEC (9.30-11.50) H 87.0 SEC (9.30-11.50) H Prothromb Time International Ratio 8.0 (0.9-1.1) *H 8.0 (0.9-1.1) *H Activated Partial Thromboplast Time 55 SEC (23-33) H 58 SEC (23-33) H White Blood Count 9.9 K/UL (4.8-10.8) Red Blood Count 3.59 M/UL (4.70-6.10) L Hemoglobin 12.7 G/DL (14.2-18.0) L Hematocrit 36.9 % (42.0-52.0) L Mean Corpuscular Volume 103 FL (80-99) H Mean Corpuscular Hemoglobin 35.5 PG (27.0-31.0) H Mean Corpuscular Hemoglobin Concent 34.5 G/DL (32.0-36.0) Red Cell Distribution Width 12.0 % (11.6-14.8) Platelet Count 187 K/UL (150-450) Mean Platelet Volume 8.9 FL (6.5-10.1) Neutrophils (%) (Auto) 73.4 % (45.0-75.0) Lymphocytes (%) (Auto) 14.5 % (20.0-45.0) L Monocytes (%) (Auto) 8.6 % (1.0-10.0) Eosinophils (%) (Auto) 1.4 % (0.0-3.0) Basophils (%) (Auto) 2.0 % (0.0-2.0) Amylase Level 57 U/L (10-110) Carcinoembryonic Antigen 293.4 ng/mL H CA 19-9 Antigen > 08928 U/mL (< 37) H Height (Feet): 6 Height (Inches): 1.00 Weight (Pounds): 170 Medications Current Medications Medications (Trade) Dose Ordered Sig/Bubba Route PRN Reason Start Time Stop Time Status Last Admin Dose Admin Acetaminophen (Tylenol) 650 mg Q4H PRN ORAL T>100.5 02/19/17 16:00 03/21/17 15:59 Al Hydroxide/Mg Hydroxide (Mylanta II) 30 ml Q6H PRN ORAL dyspepsia 02/19/17 16:00 03/21/17 15:59 Amlodipine Besylate (Norvasc) 10 mg DAILY ORAL 02/20/17 09:00 03/22/17 08:59 Dextrose (Dextrose 50%) STAT PRN IV Hypoglycemia 02/19/17 15:45 03/21/17 15:44 Dextrose/Sodium Chloride (D5 0.45% NS) 1,000 ml @ 75 mls/hr [id number] IV 02/19/17 17:00 03/21/17 16:59 02/20/17 06:20 Diphenhydramine HCl (Benadryl) 25 mg Q6H PRN ORAL Itching/Pruritis 02/19/17 16:00 03/21/17 15:59 Heparin Sodium (Porcine) (Heparin 5000 units/ml) 5,000 units EVERY 12 HOURS SUBQ 02/19/17 21:00 03/21/17 20:59 02/20/17 09:54 Minoxidil 2.5 mg 2.5 mg DAILY ORAL 02/20/17 09:00 03/22/17 08:59 02/20/17 09:51 Morphine Sulfate (Morphine Sulfate) 2 mg Q4H PRN IVP Severe Pain (Pain Scale 7-10) 02/19/17 16:00 02/26/17 15:59 Nitroglycerin (Ntg) 0.4 mg Q5M X 3 DOSES PRN SL Prn Chest Pain 02/19/17 16:00 03/21/17 15:59 Ondansetron HCl (Zofran) 4 mg Q6H PRN IVP Nausea & Vomiting 02/19/17 16:00 03/21/17 15:59 Polyethylene Glycol (Miralax) 17 gm HSPRN PRN ORAL Constipation 02/19/17 21:00 03/21/17 20:59 Temazepam (Restoril) 15 mg HSPRN PRN ORAL Insomnia 02/19/17 21:00 02/26/17 20:59 Assessment/Plan Problem List: (1) Pancreatic cancer ICD Codes: C25.9 - Malignant neoplasm of pancreas, unspecified SNOMED: 451836728 Qualifiers: Qualified Codes: C25.9 - Malignant neoplasm of pancreas, unspecified (2) Bradycardia ICD Codes: R00.1 - Bradycardia, unspecified SNOMED: 28800226 (3) Atrial fibrillation ICD Codes: I48.91 - Unspecified atrial fibrillation SNOMED: 87079907 (4) Anemia ICD Codes: D64.9 - Anemia, unspecified SNOMED: 732630197 Assessment/Plan telemetry gi evaluation symptomatic treatment. WALKER GONGORA Feb 20, 2017 14:27
--- NOTE | 2017-02-20 14:27 | Cardiology Report ---
APPROVED REPORT EKG Measurement Heart [id number] OR [id number] Sinus rhythm with 1st degree AV block Prolonged QT Abnormal ECG
[2017-02-20 15:32] VITALS: BP 123/63
--- NOTE | 2017-02-20 16:37 | Diagnostic Imaging Report ---
Indication:Abdominal pain Technique: Grayscale and duplex Doppler imaging of the abdomen performed. Comparison: None Findings: The liver is enlarged with a coarsened echotexture and is somewhat heterogeneous. Multiple hypoechoic lesions are noted within the liver suspicious for metastatic neoplasm. There is no obvious biliary ductal dilatation seen. Aorta shows mural calcification. There is a trace amount of ascites. There is a mass in the area of the pancreatic tail suspicious for malignancy. This was noted on recent CT performed 02/19/17. Gallbladder is grossly unremarkable. The main portal vein is patent by Doppler examination. Spleen is normal in size. There is no hydronephrosis. Impression: 5 cm mass in the area of the pancreatic tail. Suspicion of metastatic neoplasm involving the liver. Atherosclerotic vascular disease Please refer to the CT abdomen pelvis report
--- NOTE | 2017-02-20 18:56 | Cardiology Progress Note ---
Assessment/Plan Assessment/Plan 1. Mitral valve prosthesis. 2. History of thrombosis on prior occasions, off anticoagulation. 3. Abdominal pain. 4. Hepatomegaly. 5. Hyperbilirubinemia. 6. Weight loss. 7. Atrial flutter status post ablation, now intermittent recurrence. 8. Bradycardia. 9. pancreatic mass and live massess ct noted inf is elevated off anticoagualtion avoid any neg chronotropic agent: no bb no cardizem no clonidine watch inr when less tahn 2 start on iv heparin prognosis domingo lbe poor if indeed pancreatic can sig elevated tumor markers Subjective Cardiovascular: Reports: lightheadedness, Denies: chest pain, palpitations Respiratory: Denies: shortness of breath Gastrointestinal/Abdominal: Reports: abdominal pain Genitourinary: Denies: burning Objective Last 24 Hour Vital Signs Date Time Temp Pulse Resp B/P Pulse Ox O2 Delivery O2 Flow Rate FiO2 02/20/17 15:32 97.2 62 20 123/63 99 Room Air 02/20/17 12:00 56 02/20/17 11:26 97.5 44 20 128/57 96 Room Air 02/20/17 09:51 118/53 02/20/17 08:10 97.9 45 20 118/53 95 Room Air 02/20/17 08:00 47 02/20/17 04:00 58 02/20/17 00:17 99.0 50 20 102/40 95 Room Air 02/20/17 00:00 57 02/19/17 20:00 97.0 50 20 130/74 95 Room Air 02/19/17 20:00 51 General Appearance: no apparent distress, alert Neck: no JVD Cardiovascular: bradycardia, irregularly irregular Respiratory/Chest: lungs clear, normal breath sounds Abdomen: normal bowel sounds, non tender, soft Extremities: no swelling Intake and Output 02/19/17 02/20/17 19:00 07:00 Intake Total 575 ml 195 ml Balance 575 ml 195 ml Intake Oral 120 ml IV Total 575 ml 75 ml # Voids 1 Laboratory Tests Test 02/19/17 20:05 02/20/17 10:50 Prothrombin Time 87.0 SEC (9.30-11.50) H 87.0 SEC (9.30-11.50) H Prothromb Time International Ratio 8.0 (0.9-1.1) *H 8.0 (0.9-1.1) *H Activated Partial Thromboplast Time 55 SEC (23-33) H 58 SEC (23-33) H White Blood Count 9.9 K/UL (4.8-10.8) Red Blood Count 3.59 M/UL (4.70-6.10) L Hemoglobin 12.7 G/DL (14.2-18.0) L Hematocrit 36.9 % (42.0-52.0) L Mean Corpuscular Volume 103 FL (80-99) H Mean Corpuscular Hemoglobin 35.5 PG (27.0-31.0) H Mean Corpuscular Hemoglobin Concent 34.5 G/DL (32.0-36.0) Red Cell Distribution Width 12.0 % (11.6-14.8) Platelet Count 187 K/UL (150-450) Mean Platelet Volume 8.9 FL (6.5-10.1) Neutrophils (%) (Auto) 73.4 % (45.0-75.0) Lymphocytes (%) (Auto) 14.5 % (20.0-45.0) L Monocytes (%) (Auto) 8.6 % (1.0-10.0) Eosinophils (%) (Auto) 1.4 % (0.0-3.0) Basophils (%) (Auto) 2.0 % (0.0-2.0) Sodium Level 135 mEQ/L (135-145) Potassium Level 4.2 mEQ/L (3.4-4.9) Chloride Level 98 mEQ/L (98-107) Carbon Dioxide Level 20 mEQ/L (20-30) Anion Gap 17 (5-15) H Blood Urea Nitrogen 39 mg/dL (7-23) H Creatinine 1.5 mg/dL (0.7-1.2) H Estimat Glomerular Filtration Rate 56.2 mL/min (>60) Glucose Level 159 mg/dL (74-106) H Calcium Level 10.3 mg/dL (8.6-10.2) H Total Bilirubin 3.6 mg/dL (0.0-1.2) H Direct Bilirubin 2.5 mg/dL (0.1-0.3) H Aspartate Amino Transf (AST/SGOT) 43 U/L (5-40) H Alanine Aminotransferase (ALT/SGPT) 23 U/L (3-41) Alkaline Phosphatase 294 U/L (40-129) H Total Protein 7.1 g/dL (6.6-8.7) Albumin 2.6 g/dL (3.5-5.2) L Globulin 4.5 g/dL Albumin/Globulin Ratio 0.5 (1.0-2.7) L Amylase Level 57 U/L (10-110) Lipase 112 U/L (< 60) H Carcinoembryonic Antigen 293.4 ng/mL H CA 19-9 Antigen > 53214 U/mL (< 37) H KENIA CARRILLO Feb 20, 2017 18:56
[2017-02-20 20:00] VITALS: BP 117/63
[2017-02-21] VITALS: BP 123/43
[2017-02-21 04:00] VITALS: BP 119/55
--- NOTE | 2017-02-21 07:40 | General Progress Note ---
Assessment/Plan Assessment/Plan Assessment - Metastatic pancreatic CA , per imaging - jaundice - mild macrocytic anemia - Azotemia Recommendations - follow labs - EUS +/- ERCP next week Subjective Allergies: Coded Allergies: No Known Allergies (Unverified , 06/17/16) Subjective c/o abd pain discussed with patient re CA dx Objective Last 24 Hour Vital Signs Date Time Temp Pulse Resp B/P Pulse Ox O2 Delivery O2 Flow Rate FiO2 02/21/17 04:00 97.7 56 18 119/55 100 Room Air 02/21/17 04:00 39 02/21/17 00:00 98.4 59 18 123/43 98 Room Air 02/20/17 22:08 47 02/20/17 21:37 99.9 02/20/17 20:00 97.2 58 16 117/63 99 Room Air 02/20/17 16:00 47 02/20/17 15:32 97.2 62 20 123/63 99 Room Air 02/20/17 12:00 56 02/20/17 11:26 97.5 44 20 128/57 96 Room Air 02/20/17 09:51 118/53 02/20/17 08:10 97.9 45 20 118/53 95 Room Air 02/20/17 08:00 47 Intake and Output 02/20/17 02/21/17 19:00 07:00 Intake Total 990 ml Output Total 300 ml 660 ml Balance 690 ml -660 ml Intake Oral 240 ml IV Total 750 ml Output Urine Total 300 ml 660 ml # Bowel Movements 1 1 Laboratory Tests 02/20/17 10:50: White Blood Count 9.9, Red Blood Count 3.59L, Hemoglobin 12.7L, Hematocrit 36.9L , Mean Corpuscular Volume 103H, Mean Corpuscular Hemoglobin 35.5H, Mean Corpuscular Hemoglobin Concent 34.5, Red Cell Distribution Width 12.0, Platelet Count 187, Mean Platelet Volume 8.9, Neutrophils (%) (Auto) 73.4, Lymphocytes (% ) (Auto) 14.5L, Monocytes (%) (Auto) 8.6, Eosinophils (%) (Auto) 1.4, Basophils (%) (Auto) 2.0, Prothrombin Time 87.0H, Prothromb Time International Ratio 8.0*H , Activated Partial Thromboplast Time 58H, Sodium Level 135, Potassium Level 4.2 , Chloride Level 98, Carbon Dioxide Level 20, Anion Gap 17H, Blood Urea Nitrogen 39H, Creatinine 1.5H, Estimat Glomerular Filtration Rate 56.2, Glucose Level 159H, Calcium Level 10.3H, Total Bilirubin 3.6H, Direct Bilirubin 2.5H, Aspartate Amino Transf (AST/SGOT) 43H, Alanine Aminotransferase (ALT/SGPT) 23, Alkaline Phosphatase 294H, Total Protein 7.1, Albumin 2.6L, Globulin 4.5, Albumin/Globulin Ratio 0.5L, Amylase Level 57, Lipase 112H, Carcinoembryonic Antigen 293.4H, CA 19-9 Antigen > [id number] 02/21/17 06:45: White Blood Count [Pending], Red Blood Count [Pending], Hemoglobin [Pending], Hematocrit [Pending], Mean Corpuscular Volume [Pending], Mean Corpuscular Hemoglobin [Pending], Mean Corpuscular Hemoglobin Concent [Pending], Red Cell Distribution Width [Pending], Platelet Count [Pending], Mean Platelet Volume [ Pending], Neutrophils (%) (Auto) [Pending], Lymphocytes (%) (Auto) [Pending], Monocytes (%) (Auto) [Pending], Eosinophils (%) (Auto) [Pending], Basophils (%) (Auto) [Pending], Prothrombin Time [Pending], Prothromb Time International Ratio [Pending], Activated Partial Thromboplast Time [Pending], Sodium Level [ Pending], Potassium Level [Pending], Chloride Level [Pending], Carbon Dioxide Level [Pending], Blood Urea Nitrogen [Pending], Creatinine [Pending], Estimat Glomerular Filtration Rate [Pending], Glucose Level [Pending], Calcium Level [ Pending], Total Bilirubin [Pending], Aspartate Amino Transf (AST/SGOT) [Pending] , Alanine Aminotransferase (ALT/SGPT) [Pending], Alkaline Phosphatase [Pending] , Total Protein [Pending], Albumin [Pending], Globulin [Pending] Height (Feet): 6 Height (Inches): 1.00 Weight (Pounds): 170 Objective WDWN AA man NCAT supple CTA RRR Soft, distended, epigastric TTP no edema nonfocal KHORRAMI,PAYMAN Feb 21, 2017 07:40
[2017-02-21 07:42] LABS: BASOPHILS % (AUTO) 1.9 % (0.0-2.0); EOSINOPHILS % (AUTO) 1.3 % (0.0-3.0); LYMPHOCYTES % (AUTO) 13.4 % (20.0-45.0); MEAN CORPUSCULAR HGB CONC 35.1 G/DL (32.0-36.0); MEAN CORPUSCULAR VOLUME 103 FL (80-99); MEAN PLATELET VOLUME 9.1 FL (6.5-10.1); MONOCYTES % (AUTO) 7.4 % (1.0-10.0); NEUTROPHILS % (AUTO) 75.9 % (45.0-75.0); PLATELET COUNT 175 K/UL (150-450); RED BLOOD COUNT 3.34 M/UL (4.70-6.10); RED CELL DISTRIBUTION WIDTH 11.7 % (11.6-14.8); WHITE BLOOD COUNT 12.3 K/UL (4.8-10.8)
[2017-02-21 07:43] LABS: PROTHROMBIN TIME 104.4 SEC (9.30-11.50)
[2017-02-21 08:00] VITALS: BP 125/64
[2017-02-21 08:00] LABS: ALANINE AMINOTRANSFERASE 21 U/L (3-41); ALBUMIN/GLOBULIN RATIO 0.6 (1.0-2.7); ANION GAP 16 (5-15); ASPARTATE AMINO TRANSFERASE 43 U/L (5-40); CALCIUM 10.4 mg/dL (8.6-10.2); CARBON DIOXIDE 21 mEQ/L (20-30); CHLORIDE 99 mEQ/L (98-107); CREATININE 1.3 mg/dL (0.7-1.2); GLOMERULAR FILTRATION RATE > 60 mL/min (>60); HEMOLYSIS 2; POTASSIUM 4.3 mEQ/L (3.4-4.9); SODIUM 136 mEQ/L (135-145); TOTAL PROTEIN 6.8 g/dL (6.6-8.7)
[2017-02-21 08:07] LABS: INR 9.6 (0.9-1.1)
[2017-02-21 08:12] LABS: BILIRUBIN,DIRECT 2.7 mg/dL (0.1-0.3)
[2017-02-21] MEDS: D5 1/2NS 1,000 ML IV SCH ×2 (09:11→21:59)
[2017-02-21] MEDS: Minoxidil 2.5mg tab ORAL SCH (09:11)
[2017-02-21 12:00] VITALS: BP 113/52
[2017-02-21] MEDS ORDERED: Phytonadione 10 mg/mL 1ml amp SUBQ ONE (12:00)
[2017-02-21] MEDS ORDERED: D5 1/2NS 1000ml IV ONE (14:38)
--- NOTE | 2017-02-21 14:56 | Pulmonology Progress Note ---
Assessment/Plan Assessment/Plan ASSESSMENT pancreatic Ca with mets to liver intractable abdominal pain HTN anemia elevated transaminase hypoalbuminemia A flutter, s/p ablation ( intermittent occurrence) s/p MV replacement coagulopathy ARF COPD PLAN OF CARE tele EUS on Thursday GI follows abdominal US and CT A/P both suggestive of metastatic pancreatic tail mass , likely neoplasm, with mets involving liver CXR c/w COPD O2 HHN prn off a/coagulation for EUS , INR keep rising , today -9.6 vit K x 1 today ; check INR in am may need more correction tomorrow for preparation of EUS cardio follows s/p ablation for A flutter with intermittens recurrence no negative chronotropic as per cardio BP management with CCB and Minoxidil elevated tumor markers CEA -293 and CA 19-9 >08074 pain management acute renal failure likely 2 to dehydration IVF monitor renal parameters, lytes, avoid nephrotoxic creat trending down ARF likely 2 to dehydration monitor HH, transfuse prn bowel regimen leukocytosis likely 2 to malignant process , will observe case discussed and evaluated by supervising physician Subjective Allergies: Coded Allergies: No Known Allergies (Unverified , 06/17/16) Subjective denies chest pain, SON, palpitations, reports intermittent abdominal pain, no fevers, leucocytosis today -12.3, no n/v/diarrhea INR-9.6 Objective Last 24 Hour Vital Signs Date Time Temp Pulse Resp B/P Pulse Ox O2 Delivery O2 Flow Rate FiO2 02/21/17 12:00 48 02/21/17 12:00 97.9 54 20 113/52 98 Room Air 02/21/17 09:11 125/64 02/21/17 09:11 60 125/64 02/21/17 08:00 40 02/21/17 08:00 97.0 60 20 125/64 98 Room Air 02/21/17 04:00 97.7 56 18 119/55 100 Room Air 02/21/17 04:00 39 02/21/17 00:00 98.4 59 18 123/43 98 Room Air 02/20/17 22:08 47 02/20/17 21:37 99.9 02/20/17 20:00 97.2 58 16 117/63 99 Room Air 02/20/17 16:00 47 02/20/17 15:32 97.2 62 20 123/63 99 Room Air Intake and Output 02/20/17 02/21/17 19:00 07:00 Intake Total 990 ml Output Total 300 ml 660 ml Balance 690 ml -660 ml Intake Oral 240 ml IV Total 750 ml Output Urine Total 300 ml 660 ml # Bowel Movements 1 1 General Appearance: WD/WN, no acute distress HEENT: normocephalic, atraumatic, anicteric Respiratory/Chest: lungs clear, no respiratory distress, no accessory muscle use Cardiovascular: normal peripheral pulses, normal rate, no JVD, irregularly irregular - A fib Abdomen: normal bowel sounds - soft, TTP epigastric area , no rebound, no guarding Extremities: no edema, pedal pulses normal Neurologic/Psychiatric: no motor/sensory deficits, alert, oriented x 3, responsive Musculoskeletal: normal muscle bulk Laboratory Tests 02/21/17 06:45: White Blood Count 12.3H, Red Blood Count 3.34L, Hemoglobin 12.0L, Hematocrit 34.2L, Mean Corpuscular Volume 103H, Mean Corpuscular Hemoglobin 36.0H, Mean Corpuscular Hemoglobin Concent 35.1, Red Cell Distribution Width 11.7, Platelet Count 175, Mean Platelet Volume 9.1, Neutrophils (%) (Auto) 75.9H, Lymphocytes ( %) (Auto) 13.4L, Monocytes (%) (Auto) 7.4, Eosinophils (%) (Auto) 1.3, Basophils (%) (Auto) 1.9, Prothrombin Time 104.4H, Prothromb Time International Ratio 9.6*H, Activated Partial Thromboplast Time 61H, Sodium Level 136, Potassium Level 4.3, Chloride Level 99, Carbon Dioxide Level 21, Anion Gap 16H, Blood Urea Nitrogen 31H, Creatinine 1.3H, Estimat Glomerular Filtration Rate > 60, Glucose Level 151H, Calcium Level 10.4H, Total Bilirubin 3.8H, Direct Bilirubin 2.7H, Aspartate Amino Transf (AST/SGOT) 43H, Alanine Aminotransferase (ALT/SGPT) 21, Alkaline Phosphatase 267H, Total Protein 6.8, Albumin 2.6L, Globulin 4.2, Albumin/Globulin Ratio 0.6L Current Medications Medications (Trade) Dose Ordered Sig/Bubba Route PRN Reason Start Time Stop Time Status Last Admin Dose Admin Acetaminophen (Tylenol) 650 mg Q4H PRN ORAL T>100.5 02/19/17 16:00 03/21/17 15:59 02/20/17 21:28 Al Hydroxide/Mg Hydroxide (Mylanta II) 30 ml Q6H PRN ORAL dyspepsia 02/19/17 16:00 03/21/17 15:59 Amlodipine Besylate (Norvasc) 10 mg DAILY ORAL 02/20/17 09:00 03/22/17 08:59 02/21/17 09:11 Dextrose (Dextrose 50%) STAT PRN IV Hypoglycemia 02/19/17 15:45 03/21/17 15:44 Dextrose/Sodium Chloride (D5 0.45% NS) 1,000 ml @ 75 mls/hr [id number] IV 02/19/17 17:00 03/21/17 16:59 02/21/17 09:11 Diphenhydramine HCl (Benadryl) 25 mg Q6H PRN ORAL Itching/Pruritis 02/19/17 16:00 03/21/17 15:59 Minoxidil 2.5 mg 2.5 mg DAILY ORAL 02/20/17 09:00 03/22/17 08:59 02/21/17 09:11 Morphine Sulfate (Morphine Sulfate) 2 mg Q4H PRN IVP Severe Pain (Pain Scale 7-10) 02/19/17 16:00 02/26/17 15:59 Nitroglycerin (Ntg) 0.4 mg Q5M X 3 DOSES PRN SL Prn Chest Pain 02/19/17 16:00 03/21/17 15:59 Ondansetron HCl (Zofran) 4 mg Q6H PRN IVP Nausea & Vomiting 02/19/17 16:00 03/21/17 15:59 Polyethylene Glycol (Miralax) 17 gm HSPRN PRN ORAL Constipation 02/19/17 21:00 03/21/17 20:59 Temazepam (Restoril) 15 mg HSPRN PRN ORAL Insomnia 02/19/17 21:00 02/26/17 20:59 Heydi Constantino NP (Vanchtein) Feb 21, 2017 14:56
[2017-02-21 16:00] VITALS: BP 135/54
--- NOTE | 2017-02-21 16:23 | Cardiology Progress Note ---
Assessment/Plan Assessment/Plan reviewed rhythm strips: patient has blocked PAC this is a benign condition Subjective Subjective patient is surrounded by his family he denies any dizziness or syncope Objective Last 24 Hour Vital Signs Date Time Temp Pulse Resp B/P Pulse Ox O2 Delivery O2 Flow Rate FiO2 02/21/17 12:00 48 02/21/17 12:00 97.9 54 20 113/52 98 Room Air 02/21/17 09:11 125/64 02/21/17 09:11 60 125/64 02/21/17 08:00 40 02/21/17 08:00 97.0 60 20 125/64 98 Room Air 02/21/17 04:00 97.7 56 18 119/55 100 Room Air 02/21/17 04:00 39 02/21/17 00:00 98.4 59 18 123/43 98 Room Air 02/20/17 22:08 47 02/20/17 21:37 99.9 02/20/17 20:00 97.2 58 16 117/63 99 Room Air General Appearance: other - chronically ill appearing EENT: PERRL/EOMI Neck: no JVD Rhythm: NSR, PACs - blockerd Cardiovascular: regularly irregular Respiratory/Chest: no respiratory distress, rhonchi - bilaterally Abdomen: soft, distended 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 and 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 II-XII grossly normal Intake and Output 02/20/17 02/21/17 19:00 07:00 Intake Total 990 ml 75 ml Output Total 300 ml 660 ml Balance 690 ml -585 ml Intake Oral 240 ml IV Total 750 ml 75 ml Output Urine Total 300 ml 660 ml # Bowel Movements 1 1 Laboratory Tests Test 02/21/17 06:45 White Blood Count 12.3 K/UL (4.8-10.8) H Red Blood Count 3.34 M/UL (4.70-6.10) L Hemoglobin 12.0 G/DL (14.2-18.0) L Hematocrit 34.2 % (42.0-52.0) L Mean Corpuscular Volume 103 FL (80-99) H Mean Corpuscular Hemoglobin 36.0 PG (27.0-31.0) H Mean Corpuscular Hemoglobin Concent 35.1 G/DL (32.0-36.0) Red Cell Distribution Width 11.7 % (11.6-14.8) Platelet Count 175 K/UL (150-450) Mean Platelet Volume 9.1 FL (6.5-10.1) Neutrophils (%) (Auto) 75.9 % (45.0-75.0) H Lymphocytes (%) (Auto) 13.4 % (20.0-45.0) L Monocytes (%) (Auto) 7.4 % (1.0-10.0) Eosinophils (%) (Auto) 1.3 % (0.0-3.0) Basophils (%) (Auto) 1.9 % (0.0-2.0) Prothrombin Time 104.4 SEC (9.30-11.50) H Prothromb Time International Ratio 9.6 (0.9-1.1) *H Activated Partial Thromboplast Time 61 SEC (23-33) H Sodium Level 136 mEQ/L (135-145) Potassium Level 4.3 mEQ/L (3.4-4.9) Chloride Level 99 mEQ/L (98-107) Carbon Dioxide Level 21 mEQ/L (20-30) Anion Gap 16 (5-15) H Blood Urea Nitrogen 31 mg/dL (7-23) H Creatinine 1.3 mg/dL (0.7-1.2) H Estimat Glomerular Filtration Rate > 60 mL/min (>60) Glucose Level 151 mg/dL (74-106) H Calcium Level 10.4 mg/dL (8.6-10.2) H Total Bilirubin 3.8 mg/dL (0.0-1.2) H Direct Bilirubin 2.7 mg/dL (0.1-0.3) H Aspartate Amino Transf (AST/SGOT) 43 U/L (5-40) H Alanine Aminotransferase (ALT/SGPT) 21 U/L (3-41) Alkaline Phosphatase 267 U/L (40-129) H Total Protein 6.8 g/dL (6.6-8.7) Albumin 2.6 g/dL (3.5-5.2) L Globulin 4.2 g/dL Albumin/Globulin Ratio 0.6 (1.0-2.7) L VIKAS HARKINS Feb 21, 2017 16:23
[2017-02-22] VITALS: BP 131/51
[2017-02-22 04:20] VITALS: BP 140/55
[2017-02-22 08:00] VITALS: BP 124/44
[2017-02-22 08:41] LABS: BASOPHILS % (AUTO) 0.6 % (0.0-2.0); EOSINOPHILS % (AUTO) 1.1 % (0.0-3.0); LYMPHOCYTES % (AUTO) 12.4 % (20.0-45.0); MEAN CORPUSCULAR HEMOGLOBIN 36.1 PG (27.0-31.0); MEAN CORPUSCULAR HGB CONC 35.1 G/DL (32.0-36.0); MEAN CORPUSCULAR VOLUME 103 FL (80-99); MEAN PLATELET VOLUME 8.8 FL (6.5-10.1); MONOCYTES % (AUTO) 7.6 % (1.0-10.0); NEUTROPHILS % (AUTO) 78.4 % (45.0-75.0); PLATELET COUNT 162 K/UL (150-450); RED BLOOD COUNT 3.39 M/UL (4.70-6.10); RED CELL DISTRIBUTION WIDTH 11.8 % (11.6-14.8); WHITE BLOOD COUNT 12.6 K/UL (4.8-10.8)
[2017-02-22 09:01] LABS: INR 1.8 (0.9-1.1); PROTHROMBIN TIME 18.6 SEC (9.30-11.50)
[2017-02-22 09:03] LABS: ANION GAP 15 (5-15); CALCIUM 10.6 mg/dL (8.6-10.2); CARBON DIOXIDE 20 mEQ/L (20-30); CHLORIDE 99 mEQ/L (98-107); GLOMERULAR FILTRATION RATE > 60 mL/min (>60); HEMOLYSIS 0; POTASSIUM 4.1 mEQ/L (3.4-4.9); SODIUM 134 mEQ/L (135-145)
[2017-02-22] MEDS: Minoxidil 2.5mg tab ORAL SCH (09:20)
[2017-02-22] MEDS: D5 1/2NS 1,000 ML IV SCH (11:43)
[2017-02-22 12:00] VITALS: BP 134/54
--- NOTE | 2017-02-22 13:43 | General Progress Note ---
Assessment/Plan Assessment/Plan Assessment - Metastatic pancreatic CA , per imaging - jaundice - mild macrocytic anemia - Azotemia Recommendations - follow labs - EUS +/- ERCP next week Subjective Allergies: Coded Allergies: No Known Allergies (Unverified , 06/17/16) Subjective c/o abd pain no new problems overnight Objective Last 24 Hour Vital Signs Date Time Temp Pulse Resp B/P Pulse Ox O2 Delivery O2 Flow Rate FiO2 02/22/17 12:00 61 02/22/17 09:21 58 124/44 02/22/17 09:20 124/44 02/22/17 08:00 97.0 41 20 124/44 97 Room Air 02/22/17 08:00 41 02/22/17 05:03 44 02/22/17 04:20 98.0 59 20 140/55 97 Room Air 02/22/17 01:00 43 02/22/17 00:00 98.1 46 20 131/51 97 Room Air 02/21/17 22:28 55 02/21/17 16:00 97.9 66 20 135/54 98 Room Air 02/21/17 16:00 49 Intake and Output 02/21/17 02/22/17 19:00 07:00 Intake Total 1317.5 ml 925 ml Output Total 400 ml Balance 1317.5 ml 525 ml Intake Oral 480 ml IV Total 837.5 ml 925 ml Output Urine Total 400 ml # Voids 3 2 # Bowel Movements 2 1 Laboratory Tests 02/22/17 07:00: White Blood Count 12.6H, Red Blood Count 3.39L, Hemoglobin 12.3L, Hematocrit 35.0L, Mean Corpuscular Volume 103H, Mean Corpuscular Hemoglobin 36.1H, Mean Corpuscular Hemoglobin Concent 35.1, Red Cell Distribution Width 11.8, Platelet Count 162, Mean Platelet Volume 8.8, Neutrophils (%) (Auto) 78.4H, Lymphocytes ( %) (Auto) 12.4L, Monocytes (%) (Auto) 7.6, Eosinophils (%) (Auto) 1.1, Basophils (%) (Auto) 0.6, Prothrombin Time 18.6H, Prothromb Time International Ratio 1.8H, Sodium Level 134L, Potassium Level 4.1, Chloride Level 99, Carbon Dioxide Level 20, Anion Gap 15, Blood Urea Nitrogen 22, Creatinine 1.0, Estimat Glomerular Filtration Rate > 60, Glucose Level 139H, Calcium Level 10.6H Height (Feet): 6 Height (Inches): 1.00 Weight (Pounds): 170 Objective WDWN AA man NCAT supple CTA RRR Soft, distended, epigastric TTP no edema nonfocal ARACELI HARVEY Feb 22, 2017 13:43
--- NOTE | 2017-02-22 13:43 | Pulmonology Progress Note ---
Assessment/Plan Assessment/Plan ASSESSMENT pancreatic Ca with mets to liver intractable abdominal pain HTN anemia elevated transaminase hypoalbuminemia A flutter, s/p ablation ( intermittent occurrence) s/p MV replacement coagulopathy ARF COPD PLAN OF CARE tele EUS on Thursday GI follows abdominal US and CT A/P both suggestive of metastatic pancreatic tail mass , likely neoplasm, with mets involving liver CXR c/w COPD O2 HHN prn off a/coagulation for EUS , INR keep rising , today -9.6 s/p vit K x 1 ; INR down to 1.8 give additional 5 mg vit K in prep for EUS in am cardio follows s/p ablation for A flutter with intermittens recurrence no negative chronotropic as per cardio BP management with CCB and Minoxidil elevated tumor markers CEA -293 and CA 19-9 >44746 pain management acute renal failure likely 2 to dehydration IVF monitor renal parameters, lytes, avoid nephrotoxic creat trending down ARF likely 2 to dehydration monitor HH, transfuse prn bowel regimen leukocytosis likely 2 to malignant process , will observe case discussed and evaluated by supervising physician Subjective Allergies: Coded Allergies: No Known Allergies (Unverified , 06/17/16) Subjective denies chest pain, SOB, palpitations, reports intermittent abdominal pain, no fevers, leucocytosis today -12.6, no n/v/diarrhea INR-down to 1.8 Objective Last 24 Hour Vital Signs Date Time Temp Pulse Resp B/P Pulse Ox O2 Delivery O2 Flow Rate FiO2 02/22/17 12:00 61 02/22/17 09:21 58 124/44 02/22/17 09:20 124/44 02/22/17 08:00 97.0 41 20 124/44 97 Room Air 02/22/17 08:00 41 02/22/17 05:03 44 02/22/17 04:20 98.0 59 20 140/55 97 Room Air 02/22/17 01:00 43 02/22/17 00:00 98.1 46 20 131/51 97 Room Air 02/21/17 22:28 55 02/21/17 16:00 97.9 66 20 135/54 98 Room Air 02/21/17 16:00 49 Intake and Output 02/21/17 02/22/17 19:00 07:00 Intake Total 1317.5 ml 925 ml Output Total 400 ml Balance 1317.5 ml 525 ml Intake Oral 480 ml IV Total 837.5 ml 925 ml Output Urine Total 400 ml # Voids 3 2 # Bowel Movements 2 1 Objective General Appearance: WD/WN, no acute distress HEENT: normocephalic, atraumatic, anicteric Respiratory/Chest: lungs clear, no respiratory distress, no accessory muscle use Cardiovascular: normal peripheral pulses, normal rate, no JVD, irregularly irregular - A fib Abdomen: normal bowel sounds - soft, TTP epigastric area , no rebound, no guarding Extremities: no edema, pedal pulses normal Neurologic/Psychiatric: no motor/sensory deficits, alert, oriented x 3, responsive Musculoskeletal: normal muscle bulk Laboratory Tests 02/22/17 07:00: White Blood Count 12.6H, Red Blood Count 3.39L, Hemoglobin 12.3L, Hematocrit 35.0L, Mean Corpuscular Volume 103H, Mean Corpuscular Hemoglobin 36.1H, Mean Corpuscular Hemoglobin Concent 35.1, Red Cell Distribution Width 11.8, Platelet Count 162, Mean Platelet Volume 8.8, Neutrophils (%) (Auto) 78.4H, Lymphocytes ( %) (Auto) 12.4L, Monocytes (%) (Auto) 7.6, Eosinophils (%) (Auto) 1.1, Basophils (%) (Auto) 0.6, Prothrombin Time 18.6H, Prothromb Time International Ratio 1.8H, Sodium Level 134L, Potassium Level 4.1, Chloride Level 99, Carbon Dioxide Level 20, Anion Gap 15, Blood Urea Nitrogen 22, Creatinine 1.0, Estimat Glomerular Filtration Rate > 60, Glucose Level 139H, Calcium Level 10.6H Current Medications Medications (Trade) Dose Ordered Sig/Bubba Route PRN Reason Start Time Stop Time Status Last Admin Dose Admin Acetaminophen (Tylenol) 650 mg Q4H PRN ORAL T>100.5 02/19/17 16:00 03/21/17 15:59 02/20/17 21:28 Al Hydroxide/Mg Hydroxide (Mylanta II) 30 ml Q6H PRN ORAL dyspepsia 02/19/17 16:00 03/21/17 15:59 Amlodipine Besylate (Norvasc) 10 mg DAILY ORAL 02/20/17 09:00 03/22/17 08:59 02/22/17 09:21 Dextrose (Dextrose 50%) STAT PRN IV Hypoglycemia 02/19/17 15:45 03/21/17 15:44 Dextrose/Sodium Chloride (D5 0.45% NS) 1,000 ml @ 75 mls/hr [id number] IV 02/19/17 17:00 03/21/17 16:59 02/22/17 11:43 Diphenhydramine HCl (Benadryl) 25 mg Q6H PRN ORAL Itching/Pruritis 02/19/17 16:00 03/21/17 15:59 Minoxidil 2.5 mg 2.5 mg DAILY ORAL 02/20/17 09:00 03/22/17 08:59 02/22/17 09:20 Morphine Sulfate (Morphine Sulfate) 2 mg Q4H PRN IVP Severe Pain (Pain Scale 7-10) 02/19/17 16:00 02/26/17 15:59 Nitroglycerin (Ntg) 0.4 mg Q5M X 3 DOSES PRN SL Prn Chest Pain 02/19/17 16:00 03/21/17 15:59 Ondansetron HCl (Zofran) 4 mg Q6H PRN IVP Nausea & Vomiting 02/19/17 16:00 03/21/17 15:59 Polyethylene Glycol (Miralax) 17 gm HSPRN PRN ORAL Constipation 02/19/17 21:00 03/21/17 20:59 Temazepam (Restoril) 15 mg HSPRN PRN ORAL Insomnia 02/19/17 21:00 02/26/17 20:59 [facility]St[facility] HospitalHey[facility] Hawkins NP Feb 22, 2017 13:43
--- NOTE | 2017-02-22 14:32 | Cardiology Report ---
APPROVED REPORT EKG Measurement Heart [id number] Atrial fibrillation with slow ventricular response Cannot rule out Inferior infarct, age undetermined T wave abnormality, consider anterior ischemia Abnormal ECG
[2017-02-22] MEDS ORDERED: Phytonadione 5 MG in D5W 55 ML IVPB ONE (15:00)
[2017-02-22 16:01] LABS: INR 1.5 (0.9-1.1); PROTHROMBIN TIME 15.8 SEC (9.30-11.50)
--- NOTE | 2017-02-22 17:00 | Cardiology Progress Note ---
Assessment/Plan Assessment/Plan reviewed rhythm strips: patient has blocked PAC, is in sinus rhythm at present time, stable, can discontinue telemetry. Poor candidate for antiocagulation due to high risk of bleeding Subjective Subjective patient denies dizziness, heis weak, but walks to the bathroom without difficulties Objective Last 24 Hour Vital Signs Date Time Temp Pulse Resp B/P Pulse Ox O2 Delivery O2 Flow Rate FiO2 02/22/17 12:00 97.5 62 22 134/54 96 Room Air 02/22/17 12:00 61 02/22/17 09:21 58 124/44 02/22/17 09:20 124/44 02/22/17 08:00 97.0 41 20 124/44 97 Room Air 02/22/17 08:00 41 02/22/17 05:03 44 02/22/17 04:20 98.0 59 20 140/55 97 Room Air 02/22/17 01:00 43 02/22/17 00:00 98.1 46 20 131/51 97 Room Air 02/21/17 22:28 55 General Appearance: other - appears chronically ill EENT: other - icterus Rhythm: SB Cardiovascular: regularly irregular Respiratory/Chest: crackles/rales Abdomen: distended Extremities: normal capillary refill Intake and Output 02/21/17 02/22/17 19:00 07:00 Intake Total 1317.5 ml 925 ml Output Total 400 ml Balance 1317.5 ml 525 ml Intake Oral 480 ml IV Total 837.5 ml 925 ml Output Urine Total 400 ml # Voids 3 2 # Bowel Movements 2 1 Laboratory Tests Test 02/22/17 07:00 02/22/17 14:25 White Blood Count 12.6 K/UL (4.8-10.8) H Red Blood Count 3.39 M/UL (4.70-6.10) L Hemoglobin 12.3 G/DL (14.2-18.0) L Hematocrit 35.0 % (42.0-52.0) L Mean Corpuscular Volume 103 FL (80-99) H Mean Corpuscular Hemoglobin 36.1 PG (27.0-31.0) H Mean Corpuscular Hemoglobin Concent 35.1 G/DL (32.0-36.0) Red Cell Distribution Width 11.8 % (11.6-14.8) Platelet Count 162 K/UL (150-450) Mean Platelet Volume 8.8 FL (6.5-10.1) Neutrophils (%) (Auto) 78.4 % (45.0-75.0) H Lymphocytes (%) (Auto) 12.4 % (20.0-45.0) L Monocytes (%) (Auto) 7.6 % (1.0-10.0) Eosinophils (%) (Auto) 1.1 % (0.0-3.0) Basophils (%) (Auto) 0.6 % (0.0-2.0) Prothrombin Time 18.6 SEC (9.30-11.50) H 15.8 SEC (9.30-11.50) H Prothromb Time International Ratio 1.8 (0.9-1.1) H 1.5 (0.9-1.1) H Sodium Level 134 mEQ/L (135-145) L Potassium Level 4.1 mEQ/L (3.4-4.9) Chloride Level 99 mEQ/L (98-107) Carbon Dioxide Level 20 mEQ/L (20-30) Anion Gap 15 (5-15) Blood Urea Nitrogen 22 mg/dL (7-23) Creatinine 1.0 mg/dL (0.7-1.2) Estimat Glomerular Filtration Rate > 60 mL/min (>60) Glucose Level 139 mg/dL (74-106) H Calcium Level 10.6 mg/dL (8.6-10.2) H VIKAS HARKINS Feb 22, 2017 17:00
[2017-02-23] VITALS (10 sets, daily range): BP systolic 109–136; BP diastolic 52–72
[2017-02-23] MEDS: D5 1/2NS 1,000 ML IV SCH ×2 (01:00→14:43)
[2017-02-23 06:45] LABS: INR 1.2 (0.9-1.1); PROTHROMBIN TIME 12.7 SEC (9.30-11.50)
[2017-02-23 06:47] LABS: BASOPHILS % (AUTO) 1.4 % (0.0-2.0); EOSINOPHILS % (AUTO) 1.1 % (0.0-3.0); MEAN CORPUSCULAR HEMOGLOBIN 35.7 PG (27.0-31.0); MEAN CORPUSCULAR HGB CONC 34.5 G/DL (32.0-36.0); MEAN CORPUSCULAR VOLUME 103 FL (80-99); MEAN PLATELET VOLUME 8.9 FL (6.5-10.1); MONOCYTES % (AUTO) 6.9 % (1.0-10.0); NEUTROPHILS % (AUTO) 79.7 % (45.0-75.0); PLATELET COUNT 154 K/UL (150-450); RED BLOOD COUNT 3.29 M/UL (4.70-6.10); RED CELL DISTRIBUTION WIDTH 11.7 % (11.6-14.8)
[2017-02-23 07:21] LABS: ALANINE AMINOTRANSFERASE 18 U/L (3-41); ALBUMIN/GLOBULIN RATIO 0.5 (1.0-2.7); ANION GAP 14 (5-15); ASPARTATE AMINO TRANSFERASE 38 U/L (5-40); CARBON DIOXIDE 21 mEQ/L (20-30); CHLORIDE 100 mEQ/L (98-107); GLOMERULAR FILTRATION RATE > 60 mL/min (>60); HEMOLYSIS 2; POTASSIUM 4.1 mEQ/L (3.4-4.9); SODIUM 135 mEQ/L (135-145); TOTAL PROTEIN 6.7 g/dL (6.6-8.7)
[2017-02-23] MEDS: Minoxidil 2.5mg tab ORAL SCH (08:31)
--- NOTE | 2017-02-23 10:11 | Pre-Procedure Note/Attestation ---
Pre-Procedure Note/Attestation Complete Prior to Procedure Planned Procedure: not applicable Procedure Narrative: eus/fna Indications for Procedure Pre-Operative Diagnosis: pancreatic mass Attestation I attest that I discussed the nature of the procedure; its benefits; risks and complications; and alternatives (and the risks and benefits of such alternatives ), prior to the procedure, with the patient (or the patient's legal personal service representative). I attest that, if there was a reasonable possibility of needing a blood transfusion, the patient (or the patient's legal personal service representative) was given the [facility] standardized written summary, pursuant to the [place] Blood Safety Act ([place] Health and Safety Code # 1645, as amended). I attest that I re-evaluated the patient just prior to the surgery and that there has been no change in the patient's H&P, except as documented below: SELIN CABALLERO February 23, 2017 10:11
[2017-02-23] MEDS ORDERED: Heplock Flush 100 units/ml 3 ml syr ONE (10:31)
[2017-02-23] MEDS ORDERED: Glycopyrrolate 0.2mg/ml 1ml Vial ONE (10:45)
[2017-02-23] MEDS ORDERED: Lidocaine 1% MPF 10mg/ml 5ml ONE (10:45)
[2017-02-23] MEDS ORDERED: LR 1000ml ONE (10:45)
[2017-02-23] MEDS ORDERED: Propofol 10mg/ml 20ml IV ONE (10:45)
--- NOTE | 2017-02-23 11:27 | Immediate Post-Op Evaluation ---
Immediate Post-Op Evalulation Immediate Post-Op Evalulation Procedure: EUS Date of Evaluation: February 23, 2017 Time of Evaluation: 11:26 IV Fluids: 300 Blood Pressure Systolic: 117 Blood Pressure Diastolic: 68 Pulse Rate: 68 Respiratory Rate: 14 O2 Sat by Pulse Oximetry: 100 Temperature (Fahrenheit): 97.7 Nausea: No Vomiting: No Complications none Patient Status: awake, reacts, patent Hydration Status: adequate Drug: levaquin Given Within 1 Hr of Incision: Yes Time Given: 10:50 TERRENCE VALENCIA CRNA February 23, 2017 11:27
--- NOTE | 2017-02-23 11:29 | Anethesia Preoperative Eval ---
Anesthesia Pre-op PMH/ROS General Date of Evaluation: February 23, 2017 Time of Evaluation: 10:45 Anesthesiologist: huy ASA Score: ASA 3 Mallampati Score Class I : Soft palate, uvula, fauces, pillars visible Class II: Soft palate, uvula, fauces visible Class III: Soft palate, base of uvula visible Class IV: Only hard plate visible Mallampati Classification: Class II Surgeon: pao Diagnosis: Liver mass Surgical Procedure: EUS Anesthesia History: none Social History: smoking, current smoker, alcohol use Family History: no anesthesia problems Allergies: Coded Allergies: No Known Allergies (Unverified , 06/17/16) Medications: see eMAR Past Medical History Cardiovascular: Reports: CAD, HTN, arrhythmia - afib transient, valve dz Pulmonary: Reports: other - smokig Gastrointestinal/Genitourinary: Reports: CRI, other - Liver mass Neurologic/Psychiatric: Denies: CVA, TIA, dementia, depression/anxiety, other Endocrine: Denies: DM, hypothyroidism, other, steroids HEENT: Denies: [place] (L), [place] (R), cataract (L), cataract (R), glaucoma, other Hematology/Immune: Reports: anemia Musculoskeletal/Integumentary: Denies: DDD, DJD, OA, RA, edema, other PSxH Narrative: valve surgery/s/p ablation Anesthesia Pre-op Phys. Exam Physician Exam Last Vital Signs Date Time Temp Pulse Resp B/P Pulse Ox O2 Delivery O2 Flow Rate FiO2 02/23/17 08:32 98.4 60 18 134/58 95 Room Air Constitutional: NAD Neurologic: CN 2-12 intact Cardiovascular: RRR Respiratory: CTA Gastrointestinal: S/NT/ND Airway Exam Mallampati Classification 3 Mallampati Score: Class III MO: limited ROM: full Teeth: missing Dentures: no lower, no upper Anesthesia Pre-op A/P Labs Hematology Test 02/23/17 05:30 White Blood Count 12.0 K/UL (4.8-10.8) H Red Blood Count 3.29 M/UL (4.70-6.10) L Hemoglobin 11.7 G/DL (14.2-18.0) L Hematocrit 34.0 % (42.0-52.0) L Mean Corpuscular Volume 103 FL (80-99) H Mean Corpuscular Hemoglobin 35.7 PG (27.0-31.0) H Mean Corpuscular Hemoglobin Concent 34.5 G/DL (32.0-36.0) Red Cell Distribution Width 11.7 % (11.6-14.8) Platelet Count 154 K/UL (150-450) Mean Platelet Volume 8.9 FL (6.5-10.1) Neutrophils (%) (Auto) 79.7 % (45.0-75.0) H Lymphocytes (%) (Auto) 11.0 % (20.0-45.0) L Monocytes (%) (Auto) 6.9 % (1.0-10.0) Eosinophils (%) (Auto) 1.1 % (0.0-3.0) Basophils (%) (Auto) 1.4 % (0.0-2.0) Coagulation Test 02/22/17 14:25 02/23/17 05:30 Prothrombin Time 15.8 SEC (9.30-11.50) H 12.7 SEC (9.30-11.50) H Prothromb Time International Ratio 1.5 (0.9-1.1) H 1.2 (0.9-1.1) H Activated Partial Thromboplast Time 28 SEC (23-33) Chemistry Test 02/23/17 05:30 Sodium Level 135 mEQ/L (135-145) Potassium Level 4.1 mEQ/L (3.4-4.9) Chloride Level 100 mEQ/L (98-107) Carbon Dioxide Level 21 mEQ/L (20-30) Anion Gap 14 (5-15) Blood Urea Nitrogen 19 mg/dL (7-23) Creatinine 1.0 mg/dL (0.7-1.2) Estimat Glomerular Filtration Rate > 60 mL/min (>60) Glucose Level 142 mg/dL (74-106) H Calcium Level 11.0 mg/dL (8.6-10.2) H Total Bilirubin 5.3 mg/dL (0.0-1.2) H Direct Bilirubin 4.0 mg/dL (0.1-0.3) H Aspartate Amino Transf (AST/SGOT) 38 U/L (5-40) Alanine Aminotransferase (ALT/SGPT) 18 U/L (3-41) Alkaline Phosphatase 225 U/L (40-129) H Total Protein 6.7 g/dL (6.6-8.7) Albumin 2.5 g/dL (3.5-5.2) L Globulin 4.2 g/dL Albumin/Globulin Ratio 0.5 (1.0-2.7) L Studies Pre-op Studies: EKG - 1avb Risk Assessment & Plan Plan: mac Status Change Before Surgery: No Pre-Antibiotics Drug: none TERRENCE VALENCIA CRNA February 23, 2017 11:29
--- NOTE | 2017-02-23 11:36 | Endoscopy Procedure Note ---
Endoscopy Procedure Note Indication for Procedure: pancreatic amss Procedures Performed: other - EUS Operative Findings/Diagnosis: incomplete exam Specimen: yes Pt Tolerated Procedure Well: Yes Estimated Blood Loss: none Anesthesiologist: benedicto Anesthesia: MAC Implant(s) used?: No 50 yrs or older w/o bx or poly: Not Applicable 10yrs. F/U not recommended: Not Applicable SELIN CABALLERO February 23, 2017 11:36
--- NOTE | 2017-02-23 11:56 | Diagnostic Imaging Report ---
APPROVED REPORT CPT Code: 96145 Present Symptoms Lower Extremity Pain: Bilateral BILATERAL: Imaging reveals a patent deep venous system bilaterally. There is no evidence of thrombus within the femoral, popliteal or tibial segments. The greater saphenous veins are also within normal limits. Doppler indicates normal spontaneous flow within these segments.
--- NOTE | 2017-02-23 12:23 | 48 Hour Post Anesthesia Eval ---
Post Anesthesia Evaluation Procedure: EUS Date of Evaluation: February 23, 2017 Time of Evaluation: 12:22 Blood Pressure Systolic: 128 0: 75 Pulse Rate: 97 Respiratory Rate: 14 O2 Sat by Pulse Oximetry: 98 Airway: patent Nausea: No Vomiting: No Hydration Status: adequate Mental Status/LOC: patient returned to baseline Follow-up Care/Observations: none Follow-up care needed: N/A TERRENCE VALENCIA CRNA February 23, 2017 12:23
--- NOTE | 2017-02-23 14:08 | Physician Query ---
PLEASE COMPLETE DOCUMENT BEFORE SIGNING Dear Dr. Sho Aquino Date: February Golf Course Superintendent/CDS Name: Brie Herring CDS Golf Course Superintendent/CDS Phone No.: [phone] Exercise your independent professional judgment when responding to the query. Questions asked do not imply a particular answer is desired or expected. We greatly appreciate your clarification on this issue. CLINICAL DOCUMENTATION STATES "Patient had documentation stating that patient has been losing weight is very weak with abdominal pain for several months" documentted in the ED provider's notes. "Anemia and hypoalbuminemia " documented in [employer]'s Notes. (Heydi Constantino) CLINICAL FINDINGS SHOW: BMI=22.4 ALBUMIN=2.8,2.6,2.5,2.6 Please select the most appropriate option: [] Mild [] Moderate [] Protein/Calorie Malnutrition [] Protein Malnutrition >Serum albumin 2.8 to 3.4 g/dL or Pre-albumin 5 to 7 mg/dl (3) >Inadequate nutritional intake (1, 2, 3, 4) >NPO > 5 days >Weight loss: 5% in 1 month or 7.5% in 3 months or 10% in 6 months (1,3,4) >BMI 16 to 18.4 or Weight <90 of ideal body weight (1,2,3,4) [] Severe Malnutrition (Protein/Calorie) [] Severe Protein Malnutrition >Serum Albumin < 2.8 g/dL (1,2) >Lymphocytes < 1500/uL (2) >Inadequate nutritional intake3 , high stress e.g. major trauma, sepsis, pancreatitis, parra etc. >Decubitus ulcers (1,2) , skin breakdown(2), easy hair pluckability >Weight <80% standard for height (2) >Triceps skin fold <3 mm2 >Mid-arm muscle circumference <25 cm2 >Creatinine-height index <60% standard (2) _ [] Hypoalbuminemia [] Emancipated w/ Malnutrition [] Kwashi[place]or (rare in [place]) [] Marasmus [] Other [] Unable to determine [] Not Applicable Condition Present on Admission: [] Yes [] No [ ] Unable to determine Please also document in your Progress Notes and/or Discharge Summary and indicate if the condition was present on admission. Sho Aquino M.D. Date/Time [facility] Board. (2007). Nutritional support strategy for protein- energy malnutrition in the elderly. Clinical Practice Guidelines. 2 Irasema Edmonds (2011). Malnutrition and nutritional assessment. In Brennon Flores (18th Ed.) [employer] Principle [employer] Internal Medicine ([phone]) [place], [place]: [facility] 3 Demetrice Cheatham (2001). Clinical Nutrition: Protein-energy malnutrition in the inpatient. [employer] Journal, vol. 165 no. 10 (pp. 3103- [phone] ). 4 Any Marcelino (2012). Geriactric Nutrition: Nutritional Issues in Older Adults. [email or web address]
--- NOTE | 2017-02-23 17:05 | Pulmonology Progress Note ---
Assessment/Plan Problems: (1) Pancreatic cancer (2) Bradycardia (3) Atrial fibrillation (4) Anemia Assessment/Plan inr is down to 1.5 CT pancreas is ordered. pt and declined palliative care. want to go full force Subjective ROS Limited/Unobtainable: No Interval Events: still poor appetite Allergies: Coded Allergies: No Known Allergies (Unverified , 06/17/16) Objective Last 24 Hour Vital Signs Date Time Temp Pulse Resp B/P Pulse Ox O2 Delivery O2 Flow Rate FiO2 02/23/17 15:36 99.3 67 18 126/59 99 Room Air 02/23/17 12:23 97 14 98 02/23/17 12:18 97.2 71 20 128/72 Room Air 96.0 02/23/17 12:00 69 02/23/17 11:54 97.3 63 15 131/63 100 Room Air 02/23/17 11:40 65 16 133/59 100 Room Air 02/23/17 11:30 68 18 127/64 100 Room Air 02/23/17 11:27 68 14 100 02/23/17 11:25 66 14 109/52 100 Room Air 02/23/17 11:20 97.6 67 16 122/55 100 Room Air 02/23/17 11:15 97.6 67 20 117/68 100 Room Air 02/23/17 08:32 98.4 60 18 134/58 95 Room Air 02/23/17 08:31 134/58 02/23/17 08:31 60 134/58 02/23/17 08:00 58 02/23/17 04:00 57 02/23/17 00:23 66 02/22/17 23:03 64 Intake and Output 02/22/17 02/23/17 19:00 07:00 Intake Total 690 ml 315 ml Output Total 200 ml Balance 490 ml 315 ml Intake Oral 240 ml 240 ml IV Total 450 ml 75 ml Output Urine Total 200 ml # Voids 2 2 Objective General Appearance: WD/WN, no apparent distress, alert - awake Lines, tubes and drains: peripheral HEENT: normocephalic, atraumatic, anicteric, mucous membranes moist Neck: non-tender, supple - trachea midline Respiratory/Chest: lungs clear - with moderate air entry , no respiratory distress, no accessory muscle use Cardiovascular/Chest: normal peripheral pulses, normal rate, regular rhythm Abdomen: normal bowel sounds, non tender, soft Extremities: normal range of motion, normal inspection, no calf tenderness, normal capillary refill Skin Exam: warm/dry Neurologic: no motor/sensory deficits, Musculoskeletal: normal muscle bulk Laboratory Tests 02/23/17 05:30: White Blood Count 12.0H, Red Blood Count 3.29L, Hemoglobin 11.7L, Hematocrit 34.0L, Mean Corpuscular Volume 103H, Mean Corpuscular Hemoglobin 35.7H, Mean Corpuscular Hemoglobin Concent 34.5, Red Cell Distribution Width 11.7, Platelet Count 154, Mean Platelet Volume 8.9, Neutrophils (%) (Auto) 79.7H, Lymphocytes ( %) (Auto) 11.0L, Monocytes (%) (Auto) 6.9, Eosinophils (%) (Auto) 1.1, Basophils (%) (Auto) 1.4, Prothrombin Time 12.7H, Prothromb Time International Ratio 1.2H, Activated Partial Thromboplast Time 28, Sodium Level 135, Potassium Level 4.1, Chloride Level 100, Carbon Dioxide Level 21, Anion Gap 14, Blood Urea Nitrogen 19, Creatinine 1.0, Estimat Glomerular Filtration Rate > 60, Glucose Level 142H, Calcium Level 11.0H, Total Bilirubin 5.3H, Direct Bilirubin 4.0H, Aspartate Amino Transf (AST/SGOT) 38, Alanine Aminotransferase (ALT/SGPT) 18, Alkaline Phosphatase 225H, Total Protein 6.7, Albumin 2.5L, Globulin 4.2, Albumin/Globulin Ratio 0.5L Current Medications Medications (Trade) Dose Ordered Sig/Bubba Route PRN Reason Start Time Stop Time Status Last Admin Dose Admin Acetaminophen (Tylenol) 650 mg Q4H PRN ORAL T>100.5 02/19/17 16:00 03/21/17 15:59 02/20/17 21:28 Al Hydroxide/Mg Hydroxide (Mylanta II) 30 ml Q6H PRN ORAL dyspepsia 02/19/17 16:00 03/21/17 15:59 Amlodipine Besylate (Norvasc) 10 mg DAILY ORAL 02/20/17 09:00 03/22/17 08:59 02/23/17 08:31 Dextrose (Dextrose 50%) STAT PRN IV Hypoglycemia 02/19/17 15:45 03/21/17 15:44 Dextrose/Sodium Chloride (D5 0.45% NS) 1,000 ml @ 75 mls/hr [id number] IV 02/19/17 17:00 03/21/17 16:59 02/23/17 14:43 Diphenhydramine HCl (Benadryl) 25 mg Q6H PRN ORAL Itching/Pruritis 02/19/17 16:00 03/21/17 15:59 Minoxidil 2.5 mg 2.5 mg DAILY ORAL 02/20/17 09:00 03/22/17 08:59 02/23/17 08:31 Morphine Sulfate (Morphine Sulfate) 2 mg Q4H PRN IVP Severe Pain (Pain Scale 7-10) 02/19/17 16:00 02/26/17 15:59 02/22/17 13:54 Nitroglycerin (Ntg) 0.4 mg Q5M X 3 DOSES PRN SL Prn Chest Pain 02/19/17 16:00 03/21/17 15:59 Ondansetron HCl (Zofran) 4 mg Q6H PRN IVP Nausea & Vomiting 02/19/17 16:00 03/21/17 15:59 Polyethylene Glycol (Miralax) 17 gm HSPRN PRN ORAL Constipation 02/19/17 21:00 03/21/17 20:59 Temazepam (Restoril) 15 mg HSPRN PRN ORAL Insomnia 02/19/17 21:00 02/26/17 20:59 WALKER GONGORA February 23, 2017 17:05
--- NOTE | 2017-02-23 17:43 | Cardiology Progress Note ---
Assessment/Plan Assessment/Plan 1. Mitral valve prosthesis. 2. History of thrombosis on prior occasions, off anticoagulation. 3. Abdominal pain. 4. Hepatomegaly. 5. Hyperbilirubinemia. 6. Weight loss. 7. Atrial flutter status post ablation, now intermittent recurrence. 8. Bradycardia. 9. pancreatic mass and live massess ct noted inf is elevated off anticoagualtion avoid any neg chronotropic agent: no bb no cardizem no clonidine need coumadin prognosis will be poor if indeed pancreatic cancer has converd to sinus again sig elevated tumor markers eus performed needs to resume anticoagulation with heparin to Coumadin cross over Subjective Cardiovascular: Denies: chest pain, lightheadedness Respiratory: Denies: shortness of breath Gastrointestinal/Abdominal: Reports: abdominal pain Genitourinary: Denies: burning Objective Last 24 Hour Vital Signs Date Time Temp Pulse Resp B/P Pulse Ox O2 Delivery O2 Flow Rate FiO2 02/23/17 15:36 99.3 67 18 126/59 99 Room Air 02/23/17 12:23 97 14 98 02/23/17 12:18 97.2 71 20 128/72 Room Air 96.0 02/23/17 12:00 69 02/23/17 11:54 97.3 63 15 131/63 100 Room Air 02/23/17 11:40 65 16 133/59 100 Room Air 02/23/17 11:30 68 18 127/64 100 Room Air 02/23/17 11:27 68 14 100 02/23/17 11:25 66 14 109/52 100 Room Air 02/23/17 11:20 97.6 67 16 122/55 100 Room Air 02/23/17 11:15 97.6 67 20 117/68 100 Room Air 02/23/17 08:32 98.4 60 18 134/58 95 Room Air 02/23/17 08:31 134/58 02/23/17 08:31 60 134/58 02/23/17 08:00 58 02/23/17 04:00 57 02/23/17 00:23 66 02/22/17 23:03 64 General Appearance: no apparent distress Neck: supple Cardiovascular: normal rate, regular rhythm Respiratory/Chest: lungs clear, normal breath sounds Abdomen: normal bowel sounds, non tender, soft Extremities: no swelling Intake and Output 02/22/17 02/23/17 19:00 07:00 Intake Total 690 ml 315 ml Output Total 200 ml Balance 490 ml 315 ml Intake Oral 240 ml 240 ml IV Total 450 ml 75 ml Output Urine Total 200 ml # Voids 2 2 Laboratory Tests Test 02/23/17 05:30 White Blood Count 12.0 K/UL (4.8-10.8) H Red Blood Count 3.29 M/UL (4.70-6.10) L Hemoglobin 11.7 G/DL (14.2-18.0) L Hematocrit 34.0 % (42.0-52.0) L Mean Corpuscular Volume 103 FL (80-99) H Mean Corpuscular Hemoglobin 35.7 PG (27.0-31.0) H Mean Corpuscular Hemoglobin Concent 34.5 G/DL (32.0-36.0) Red Cell Distribution Width 11.7 % (11.6-14.8) Platelet Count 154 K/UL (150-450) Mean Platelet Volume 8.9 FL (6.5-10.1) Neutrophils (%) (Auto) 79.7 % (45.0-75.0) H Lymphocytes (%) (Auto) 11.0 % (20.0-45.0) L Monocytes (%) (Auto) 6.9 % (1.0-10.0) Eosinophils (%) (Auto) 1.1 % (0.0-3.0) Basophils (%) (Auto) 1.4 % (0.0-2.0) Prothrombin Time 12.7 SEC (9.30-11.50) H Prothromb Time International Ratio 1.2 (0.9-1.1) H Activated Partial Thromboplast Time 28 SEC (23-33) Sodium Level 135 mEQ/L (135-145) Potassium Level 4.1 mEQ/L (3.4-4.9) Chloride Level 100 mEQ/L (98-107) Carbon Dioxide Level 21 mEQ/L (20-30) Anion Gap 14 (5-15) Blood Urea Nitrogen 19 mg/dL (7-23) Creatinine 1.0 mg/dL (0.7-1.2) Estimat Glomerular Filtration Rate > 60 mL/min (>60) Glucose Level 142 mg/dL (74-106) H Calcium Level 11.0 mg/dL (8.6-10.2) H Total Bilirubin 5.3 mg/dL (0.0-1.2) H Direct Bilirubin 4.0 mg/dL (0.1-0.3) H Aspartate Amino Transf (AST/SGOT) 38 U/L (5-40) Alanine Aminotransferase (ALT/SGPT) 18 U/L (3-41) Alkaline Phosphatase 225 U/L (40-129) H Total Protein 6.7 g/dL (6.6-8.7) Albumin 2.5 g/dL (3.5-5.2) L Globulin 4.2 g/dL Albumin/Globulin Ratio 0.5 (1.0-2.7) L KENIA CARRILLO February 23, 2017 17:43
[2017-02-23] MEDS ORDERED: Heparin 25,000u/D5W 500ml 500 ML IV SCH ×2 (17:45→18:15)
[2017-02-23] MEDS ORDERED: Heparin 5000 units/ml inj IV ONE ×3 (17:45→18:15)
[2017-02-23] MEDS: Dronabinol 2.5mg Cap ORAL SCH (17:48)
[2017-02-23] MEDS: Megace 400mg/10ml Susp ORAL SCH (17:48)
--- NOTE | 2017-02-23 17:58 | Cardiology Progress Note ---
Assessment/Plan Assessment/Plan 1. Mitral valve prosthesis. 2. History of thrombosis on prior occasions, off anticoagulation. 3. Abdominal pain. 4. Hepatomegaly. 5. Hyperbilirubinemia. 6. Weight loss. 7. Atrial flutter status post ablation, now intermittent recurrence. 8. Bradycardia. 9. pancreatic mass and live massess ct noted inf is elevated off anticoagualtion avoid any neg chronotropic agent: no bb no cardizem no clonidine prognosis will be poor if indeed pancreatic cancer has converd to sinus again sig elevated tumor markers eus performed needs to resume anticoagulation with heparin to Coumadin cross over d/w dr cedeno eus was not able to be performed domingo lneed ct guided bx of his mass he will need to resuem heparin and dc 6 huor before procedure if ct guided bx is performed may have sig bleedign risk post bx on anticoagulation and at risk of valve thrombosis with out anticoagulation message left to d/w dr pantoja d/w rn Objective Last 24 Hour Vital Signs Date Time Temp Pulse Resp B/P Pulse Ox O2 Delivery O2 Flow Rate FiO2 02/23/17 15:36 99.3 67 18 126/59 99 Room Air 02/23/17 12:23 97 14 98 02/23/17 12:18 97.2 71 20 128/72 Room Air 96.0 02/23/17 12:00 69 02/23/17 11:54 97.3 63 15 131/63 100 Room Air 02/23/17 11:40 65 16 133/59 100 Room Air 02/23/17 11:30 68 18 127/64 100 Room Air 02/23/17 11:27 68 14 100 02/23/17 11:25 66 14 109/52 100 Room Air 02/23/17 11:20 97.6 67 16 122/55 100 Room Air 02/23/17 11:15 97.6 67 20 117/68 100 Room Air 02/23/17 08:32 98.4 60 18 134/58 95 Room Air 02/23/17 08:31 134/58 02/23/17 08:31 60 134/58 02/23/17 08:00 58 02/23/17 04:00 57 02/23/17 00:23 66 02/22/17 23:03 64 Intake and Output 02/22/17 02/23/17 19:00 07:00 Intake Total 690 ml 315 ml Output Total 200 ml Balance 490 ml 315 ml Intake Oral 240 ml 240 ml IV Total 450 ml 75 ml Output Urine Total 200 ml # Voids 2 2 Laboratory Tests Test 02/23/17 05:30 White Blood Count 12.0 K/UL (4.8-10.8) H Red Blood Count 3.29 M/UL (4.70-6.10) L Hemoglobin 11.7 G/DL (14.2-18.0) L Hematocrit 34.0 % (42.0-52.0) L Mean Corpuscular Volume 103 FL (80-99) H Mean Corpuscular Hemoglobin 35.7 PG (27.0-31.0) H Mean Corpuscular Hemoglobin Concent 34.5 G/DL (32.0-36.0) Red Cell Distribution Width 11.7 % (11.6-14.8) Platelet Count 154 K/UL (150-450) Mean Platelet Volume 8.9 FL (6.5-10.1) Neutrophils (%) (Auto) 79.7 % (45.0-75.0) H Lymphocytes (%) (Auto) 11.0 % (20.0-45.0) L Monocytes (%) (Auto) 6.9 % (1.0-10.0) Eosinophils (%) (Auto) 1.1 % (0.0-3.0) Basophils (%) (Auto) 1.4 % (0.0-2.0) Prothrombin Time 12.7 SEC (9.30-11.50) H Prothromb Time International Ratio 1.2 (0.9-1.1) H Activated Partial Thromboplast Time 28 SEC (23-33) Sodium Level 135 mEQ/L (135-145) Potassium Level 4.1 mEQ/L (3.4-4.9) Chloride Level 100 mEQ/L (98-107) Carbon Dioxide Level 21 mEQ/L (20-30) Anion Gap 14 (5-15) Blood Urea Nitrogen 19 mg/dL (7-23) Creatinine 1.0 mg/dL (0.7-1.2) Estimat Glomerular Filtration Rate > 60 mL/min (>60) Glucose Level 142 mg/dL (74-106) H Calcium Level 11.0 mg/dL (8.6-10.2) H Total Bilirubin 5.3 mg/dL (0.0-1.2) H Direct Bilirubin 4.0 mg/dL (0.1-0.3) H Aspartate Amino Transf (AST/SGOT) 38 U/L (5-40) Alanine Aminotransferase (ALT/SGPT) 18 U/L (3-41) Alkaline Phosphatase 225 U/L (40-129) H Total Protein 6.7 g/dL (6.6-8.7) Albumin 2.5 g/dL (3.5-5.2) L Globulin 4.2 g/dL Albumin/Globulin Ratio 0.5 (1.0-2.7) L KENIA CARRILLO February 23, 2017 17:58
--- NOTE | 2017-02-23 23:48 | Procedure Note ---
DATE OF PROCEDURE: 02/23/2017 SURGEON: Norris Hdez M.D. ANESTHESIOLOGIST: PROCEDURE: EUS with attempt for fine-needle aspiration. INDICATION: Pancreatic mass. REASON FOR PROCEDURE: The procedure, risks, benefits, and possible consequences, including hemorrhage, aspiration, perforation and infection, and alternative treatments, were explained to the patient/legal guardian by Dr. Norris Hdez and the patient/legal guardian understood and accepted these risks. DESCRIPTION OF PROCEDURE: After informed consent was obtained and the patient was adequately sedated, EUS scope was advanced from the mouth into the stomach and we tried to inflate the balloon. The balloon was not working. Because of the balloon malfunctioning, we could not completely do this examination. Unfortunately, we pulled the scope back, tried to place the balloon, it seems to have been more than just a balloon malfunctioning, most probably the tip of the scope was leaking, that is why the balloon was not working. Given the patient was already sedated, we said we are going to give our best shot, and we went back again and again. We passed the FNA needle of 22-gauge core twice. I am not sure if we are able to get good samples given we could not see the mass very well. At this time, given this problem, we decided to abort the procedure. FINDINGS: A large pancreatic mass in the tail, unable to do a good fine needle aspiration given scope malfunction. Plan, we will order liver biopsy today to see if we can get a liver lesion been diagnosed in October, and meanwhile, the patient will need Oncology evaluation. If the liver biopsy fails, we will repeat the EUS cystoscope corrected. IMPRESSION: RECOMMENDATIONS: I want to thank, Dr. Aquino, for this kind referral. Norris Hdez M.D. DR: Jannette JOB#: [id number] CC:
[2017-02-24] MEDS: D5 1/2NS 1,000 ML IV SCH (03:38)
[2017-02-24 08:26] VITALS: BP 138/70
[2017-02-24] MEDS: Megace 400mg/10ml Susp ORAL SCH (08:35)
[2017-02-24] MEDS: Dronabinol 2.5mg Cap ORAL SCH ×2 (08:36→13:04)
[2017-02-24] MEDS: Minoxidil 2.5mg tab ORAL SCH (08:40)
--- NOTE | 2017-02-24 09:46 | Cardiology Progress Note ---
Assessment/Plan Assessment/Plan 1. Mitral valve prosthesis. 2. History of thrombosis on prior occasions, off anticoagulation. 3. Abdominal pain. 4. Hepatomegaly. 5. Hyperbilirubinemia. 6. Weight loss. 7. Atrial flutter status post ablation, now intermittent recurrence. 8. Bradycardia. 9. pancreatic mass and live massess ct noted avoid any neg chronotropic agent: no bb no cardizem no clonidine prognosis will be poor if indeed pancreatic cancer has converd to sinus sig elevated tumor markers eus performed no bx needs to resume anticoagulation with heparin to Coumadin cross over if ct guided bx is performed may have sig bleeding risk post bx on anticoagulation and at risk of valve thrombosis with out anticoagulation he wants to go home today at 11 and wants iv taken out refused blood draw this am and last nite if he will be going home will need lovenox he has used before ia ma wiating he will need less coumadin then he was taking at [employer] as inr was sig elevated d/w dr singh pt lives in [place] pt will take couamdin 2 mg 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) lovenox 80 mg sq bid unitl inr greterthn 2.2 Subjective Cardiovascular: Denies: chest pain, lightheadedness, palpitations Respiratory: Denies: shortness of breath Gastrointestinal/Abdominal: Reports: abdominal pain Genitourinary: Denies: burning Subjective refused all blood test want to go home he domingo dwain los at 11 am refused ptt draw for heparin last nite Objective Last 24 Hour Vital Signs Date Time Temp Pulse Resp B/P Pulse Ox O2 Delivery O2 Flow Rate FiO2 02/24/17 08:40 138/70 02/24/17 08:40 64 138/70 02/24/17 08:26 97.7 64 20 138/70 98 Room Air 02/24/17 04:00 61 02/24/17 00:00 65 02/23/17 20:00 97.5 69 21 136/64 100 Room Air 02/23/17 20:00 68 02/23/17 16:00 59 02/23/17 15:36 99.3 67 18 126/59 99 Room Air 02/23/17 12:23 97 14 98 02/23/17 12:18 97.2 71 20 128/72 Room Air 96.0 02/23/17 12:00 69 02/23/17 11:54 97.3 63 15 131/63 100 Room Air 02/23/17 11:40 65 16 133/59 100 Room Air 02/23/17 11:30 68 18 127/64 100 Room Air 02/23/17 11:27 68 14 100 02/23/17 11:25 66 14 109/52 100 Room Air 02/23/17 11:20 97.6 67 16 122/55 100 Room Air 02/23/17 11:15 97.6 67 20 117/68 100 Room Air General Appearance: no apparent distress, alert Neck: supple Cardiovascular: normal rate, regular rhythm Respiratory/Chest: lungs clear Abdomen: normal bowel sounds, soft Extremities: no swelling Intake and Output 02/23/17 02/24/17 19:00 07:00 Intake Total 945 ml 515.26 ml Output Total 600 ml Balance 945 ml -84.74 ml Intake Oral 120 ml IV Total 825 ml 515.26 ml Output Urine Total 600 ml # Voids 3 Laboratory Tests Test 02/23/17 18:15 Activated Partial Thromboplast Time Pending KENIA CARRILLO February 24, 2017 09:46
--- NOTE | 2017-02-24 10:06 | GI Progress Note ---
Assessment/Plan Problems: (1) Pancreatic cancer ICD Codes: C25.9 - Malignant neoplasm of pancreas, unspecified SNOMED: 472933867 Qualifiers: Qualified Codes: C25.9 - Malignant neoplasm of pancreas, unspecified (2) Abnormal LFTs (liver function tests) ICD Codes: R79.89 - Other specified abnormal findings of blood chemistry SNOMED: 197539664 (3) Encounter for diagnostic endoscopy ICD Codes: Z01.818 - Encounter for other preprocedural examination SNOMED: 140190976, 916534752 (4) Abdominal pain ICD Codes: R10.9 - Unspecified abdominal pain SNOMED: 69397038 (5) Hypoalbuminemia ICD Codes: E88.09 - Other disorders of plasma-protein metabolism, not elsewhere classified SNOMED: 475641297 (6) Anemia ICD Codes: D64.9 - Anemia, unspecified SNOMED: 157101424 (7) Severe malnutrition ICD Codes: E43 - Unspecified severe protein-calorie malnutrition SNOMED: 81341092 Status: stable, unchanged Status Narrative Discussed with Dr. Hdez. Assessment/Plan CEA elevation CA19-9 elevation pancreatic mass S/P EUS w/ FNA >> A large pancreatic mass in the tail, unable to do a good fine needle aspiration given scope malfunction. ordered CT guided liver lesion biopsy >> if liver biopsy fails or does not conclude Pancreatic CA metastasis, we will repeat EUS as outpatient. patient will need Oncology evaluation ok for DC per GI standpoint after liver biopsy low fat diet fu labs Subjective Gastrointestinal/Abdominal: Reports: no symptoms Subjective wants to go home Objective Last 24 Hour Vital Signs Date Time Temp Pulse Resp B/P Pulse Ox O2 Delivery O2 Flow Rate FiO2 02/24/17 08:40 138/70 02/24/17 08:40 64 138/70 02/24/17 08:26 97.7 64 20 138/70 98 Room Air 02/24/17 04:00 61 02/24/17 00:00 65 02/23/17 20:00 97.5 69 21 136/64 100 Room Air 02/23/17 20:00 68 02/23/17 16:00 59 02/23/17 15:36 99.3 67 18 126/59 99 Room Air 02/23/17 12:23 97 14 98 02/23/17 12:18 97.2 71 20 128/72 Room Air 96.0 02/23/17 12:00 69 02/23/17 11:54 97.3 63 15 131/63 100 Room Air 02/23/17 11:40 65 16 133/59 100 Room Air 02/23/17 11:30 68 18 127/64 100 Room Air 02/23/17 11:27 68 14 100 02/23/17 11:25 66 14 109/52 100 Room Air 02/23/17 11:20 97.6 67 16 122/55 100 Room Air 02/23/17 11:15 97.6 67 20 117/68 100 Room Air Intake and Output 02/23/17 02/24/17 19:00 07:00 Intake Total 945 ml 515.26 ml Output Total 600 ml Balance 945 ml -84.74 ml Intake Oral 120 ml IV Total 825 ml 515.26 ml Output Urine Total 600 ml # Voids 3 Laboratory Tests Test 02/23/17 18:15 Activated Partial Thromboplast Time Pending Height (Feet): 6 Height (Inches): 1.00 Weight (Pounds): 170 General Appearance: no apparent distress, alert Cardiovascular: normal rate Respiratory/Chest: normal breath sounds, no accessory muscle use Abdominal Exam: normal bowel sounds, non tender, soft Extremities: normal range of motion Objective Service Date: 02/19/17 Procedure: CT Abdomen Pelvis WO Contrast Indication: Abdominal pain Impression: 5 x 5.3 x 5 cm pancreatic tail mass, highly suspicious for primary pancreatic malignancy. There is evidence of peripancreatic lymphadenopathy Innumerable liver lesions throughout the liver, enlarging it. Appearance highly suspicious for diffuse metastatic involvement, presumably secondary to the above. Trace ascites Equivocal mild gallbladder wall thickening and pericholecystic fluid, no definite radiopaque calculi. Probably secondary to underdistention ascites,. Consider nuclear medicine hepatobiliary scan if there is high clinical suspicion 4 acute cholecystitis Nonspecific bilateral perinephric fat stranding Complex 2 cm left renal angiomyolipoma Prostatomegaly Magy Canales N.P. February 24, 2017 10:06
[2017-02-24 11:22] VITALS: BP 121/55
[2017-02-24] MEDS ORDERED: Enoxaparin 80mg Inj SUBQ SCH (12:00)
[2017-02-24] MEDS ORDERED: Warfarin Sodium 5mg ORAL ONE (12:30)
[2017-02-24] MEDS ORDERED: COUMADIN7.5 MG ORAL (12:42)
[2017-02-24] MEDS ORDERED: NORCO 10-325 T1 EACH ORAL (12:42)
[2017-02-24] MEDS ORDERED: LOVENOX10 M2 SUBQ (12:44)
[2017-02-24] MEDS ORDERED: WARFARIN SODIUM2 MG ORAL (12:45)
[2017-02-24] MEDS ORDERED: Tubing IV Secondary IV ONE (13:20)
[2017-02-24] MEDS ORDERED: D5 1/2NS 1000ml IV ONE (13:20)
--- NOTE | 2017-02-25 15:56 | Cardiology Report ---
APPROVED REPORT EXAM: Two-dimensional and M-mode echocardiogram with Doppler and color Doppler. INDICATION CAD M-Mode DIMENSIONS IVSd0.9 (0.7-1.1cm)Left Atrium (MM)5.0 (1.6-4.0cm) LVDd5.9 (3.5-5.6cm)Aortic Root4.5 (2.0-3.7cm) PWd1.7 (0.7-1.1cm)Aortic Cusp Exc.2.1 (1.5-2.0cm) IVSs1.6 cm LVDs3.9 (2.5-4.0cm) PWs2.3 cm Normal left ventricular chamber size, systolic function and wall motion. Left ventricular ejection fraction estimated to be 60 %. Mild left ventricular hypertrophy by 2-D. Anterior Echo-free space, may be due to pericardial fat or effusion. Mild bi-atrial enlargement. Right cardiac ventricular size is within normal limits. Focal aortic valve sclerosis with adequate cusp excursion. Mitral valve prosthesis is seen and appears to move appropriately. Moderate mitral annulus and aortic root calcification. Pulmonic valve not well visualized. Normal tricuspid valve structure. A color flow and spectral Doppler study was performed and revealed: Trace aortic insufficiency. Mild mitral regurgitation. Peak mitral valve diastolic gradient of 11 mmHg and a mean gradient of 3 mmHg Mitral inflow velocities indicates possible pseudo normalization pattern implying significant left ventricular diastolic dysfunction. Mild tricuspid regurgitation. Tricuspid systolic velocities suggests peak right ventricular systolic pressure of 40 mmHg, consistent with mild pulmonary hypertension. Pulmonic regurgitation present.
--- NOTE | 2017-02-25 20:27 | Discharge Summary ---
Discharge Summary Hospital Course Date of Admission Feb 19, 2017 at 14:07 Date of Discharge February 24, 2017 at 13:21 Admitting Diagnosis persistant abdominal pain HPI Nicolas Perez is a 71 year old male who was admitted on Feb 19, 2017 at 14:07 for Persostant Abdominal Pain Hospital Course [id number] Discharge Discharge Disposition Patient was discharged to Home (01) Discharge Diagnoses: Donna Ko NP February 25, 2017 20:27
--- NOTE | 2017-02-26 04:28 | Discharge Summary 2 SIG ---
DATE OF ADMISSION: 02/19/2017 DATE OF DISCHARGE: 02/24/2017 CONSULTANTS: 1. Norris Hdez M.D. 2. Andrew Macdonald M.D. BRIEF HOSPITAL COURSE: The patient is a 71-year-old male, who presented to ED for evaluation of weight loss and abdominal pain that was described to be sharp and epigastric nonradiating. The pain has been ongoing for several months. On evaluation at ED, CT of the abdomen and pelvis showed multiple liver lesions with masses on the pancreatic tail. The patient was bradycardic with a heart rate of 40 to 50. The patient was then admitted for further evaluation. He was followed by Dr. Hdez and Dr. Macdonald. EKG showed atrial fibrillation with heart rate of 46 and patient goes back and forth between sinus and atrial fibrillation on regular basis. He did have some T-wave inversions in lead V1 and V2, and that were present on prior occasions as well. He has some ST-segment changes in leads 2 and 3 and aVF, which were also present on his prior EKG although not to this degree. He has a mitral valve prosthesis and history of chronic thrombosis. The patient has been on anticoagulants. He was ordered to stop Coumadin in preparation for a scheduled EUS. On 02/23/2017, he underwent endoscopic ultrasound with attempt for fine-needle aspiration. However, needle biopsy was attempted twice. Unable to visualize the mass very well. Procedure was then aborted. Discussed with family about palliative plan however the patient and declined palliative care. The patient had elevated large tumor markers. Prognosis is poor. If indeed pancreatic cancer was advised to avoid negative chronotropic agents. No beta blockers. No Cardizem. No clonidine. If a CT-guided biopsy is performed, the patient may have significant bleeding risk post biopsy secondary to anticoagulation and also at risk of valve thrombosis without anticoagulation. The patient refused blood draw and wants to be discharged home. Advised the patient to continue warfarin and Lovenox for now until INR is greater than 2.2. The patient needs to follow up with PMD. FINAL DIAGNOSES: 1. Possible pancreatic cancer. 2. Mitral valve prosthesis. 3. Atrial flutter status post ablation with intermittent recurrence. 4. Hepatomegaly. 5. Hyperbilirubinemia. 6. Severe protein-calorie malnutrition, present on admission. 7. Status post endoscopic ultrasound. 8. Anemia. 9. Bradycardia. Sho Aquino M.D. I have been assigned to dictate discharge summary on this account and I was not involved in the patient's management. Donna Ko N.P. DR: VANESSA JOB#: [id number] CC: MAICO
== END 2017-02-24 13:21 | disposition home or self-care (01) | DRG 435 ==
LOC: EMR 13:20 → 4E 14:07 → EDBEDREQ 14:25 → EDBEDREQSVC 16:01 → EDBEDREQ 16:01 → 2E 16:07
PROC: 0DJ08ZZ Inspection of Upper Intestinal Tract, Via Natural or Artificial Opening Endoscopic (ICD-10-PCS; principal; 2017-02-23 10:51)
DX: C25.2 Malignant neoplasm of tail of pancreas (principal); E43 Unspecified severe protein-calorie malnutrition; N17.9 Acute kidney failure, unspecified; C78.7 Secondary malignant neoplasm of liver and intrahepatic bile duct; I48.91 Unspecified atrial fibrillation; I48.92 Unspecified atrial flutter; I07.1 Rheumatic tricuspid insufficiency; R16.0 Hepatomegaly, not elsewhere classified; D64.9 Anemia, unspecified; Z95.2 Presence of prosthetic heart valve; R00.1 Bradycardia, unspecified; Z79.01 Long term (current) use of anticoagulants; Z87.891 Personal history of nicotine dependence
CPT/HCPCS: 36415; 71010; 74176; 76700; 80048; 80053; 82150; 82248; 82378; 82550; 82553; 83690; 84484; 85025; 85610; 85730; 86301; 93005; 93306; 93970; 94003; 94150; J3430